=== PATIENT | female | born 1970 | race Caucasian/White ===

== ENCOUNTER 2020-12-12 08:29 | Outpatient (CLI) | payer OTHER, SELFPAY ==
[2020-12-12 08:42] LABS: Basophils Absolute Auto 0.08 K/mm3 (0.00-0.10); Basophils Percent Auto 0.7 % (0.0-1.0); Eosinophils Absolute Auto 0.09 K/mm3 (0.02-0.50); Eosinophils Percent Auto 0.8 % (1.0-6.0); Hematocrit 45.3 % (35.0-49.0); Hemoglobin 15.2 g/dL (12.0-15.0); Immature Granulocyte Absolute 0.06 K/mm3 (0.00-0.00); Immature Granulocyte Percent A 0.5 % (0.0-0.0); Lymphocytes Absolute Auto 3.14 K/mm3 (1.10-4.50); Lymphocytes Percent Auto 26.5 % (18.0-42.0); Mean Corpuscular HGB Conc 33.6 g/dL (32.0-36.0); Mean Corpuscular Hemoglobin 31.5 pg (27.0-31.0); Mean Corpuscular Volume 93.8 fL (78.0-102.0); Mean Platelet Volume 8.9 fl (9.2-11.8); Monocytes Absolute Auto 0.76 K/mm3 (0.10-0.90); Monocytes Percent Auto 6.4 % (2.0-11.0); Neutrophils Absolute Auto 7.7 K/mm3 (1.7-7.2); Neutrophils Percent Auto 65.1 % (50.0-70.0); Platelet Count Result 343 K/mm3 (150-420); Red Blood Count 4.83 M/mm3 (4.20-5.40); Red Cell Distribution Width 13.9 % (11.6-14.4); White Blood Count 11.9 K/mm3 (4.8-10.8)
[2020-12-12 09:37] LABS: Alanine Aminotransferase 57 U/L (14-59); Albumin Level 3.6 g/dL (3.4-5.0); Alkaline Phosphatase 89 U/L (46-116); Anion Gap 11 mmol/L (8-16); Aspartate Amino Transferase 18 U/L (15-37); Bilirubin,Total 0.3 mg/dL (0.00-1.00); Blood Urea Nitrogen 17 mg/dL (7-18); Calcium 8.9 mg/dL (8.5-10.1); Carbon Dioxide 25 mmol/L (21-32); Chloride 105 mmol/L (98-108); Cholesterol 259 mg/dL (0-200); Estimated Glomerular Filt Rate 59; Glucose 114 mg/dL (70-99); HDL Direct 45 mg/dL (40-60); LDL Cholesterol Calculated 169 mg/dL (<130); Osmolality Calculated 294 mOsm/kg (285-295); Potassium 4.7 mmol/L (3.5-5.1); Sodium 141 mmol/L (136-145); Total Protein 6.8 g/dL (6.4-8.2); Triglycerides 223 mg/dL (0-150)
== END 2020-12-12 08:30 | disposition home or self-care (01) ==
PROVIDERS: PCP Nurse Practitioner Family; Visit Provider Nurse Practitioner Family
DX: R73.09 Other abnormal glucose (principal); E78.5 Hyperlipidemia, unspecified; Z12.11 Encounter for screening for malignant neoplasm of colon; Z12.12 Encounter for screening for malignant neoplasm of rectum
CPT/HCPCS: 36415; 80053; 80061; 83036; 85025

== ENCOUNTER 2021-06-30 07:52 | Outpatient (RCR) | payer OTHER, SELFPAY ==
--- NOTE | 2021-06-30 08:57 | PTOPEVAL ---
Thank you for referring Nesha Reid to [facility].? The patient is scheduled to be seen for therapy? ____x/week for ___ weeks. Please review, sign, date and return this plan of care MARGIE. I agree with and certify that the following plan of care is medically necessary. Referring Physician Date Admitting Provider: Attending Provider: Olive Sanabria NP Referring Provider: ANU Outpatient Evaluation Start: 06/30/21 08:01 Freq: Status: Active Protocol: Document 06/30/21 08:00 JON (Rec: 06/30/21 08:54 JON [email or web address]) Therapy Assessment Status Assessment Status Assessment Status Evaluation Evaluation Information Problem Diagnosis cervical radiculopathy Onset Additional Evaluation Detail NDI = 40% functionally declined Subjective Information patient reports she began Query Text:As Reported By Patient/ having numbness in the L thumb Family , index, and middle fingers and up the arm into the shoulder beginning about 2 months ago. she reports she had an MRI of the neck but reports this was a few years ago. she reports she has never been tested for carpal tunnel of the L hand. she reports her MRI 2 years ago revealed a bulging disc in the lower neck. she reports she will have increased numbness/ tingling in the hand and arm when she is simply sitting. she reports she hears a lot of crunching and grinding in the neck, but this does not necessarily increase her pain. she reports she does not work . she reports a typical day at home includes cooking and light house work. Prior Level of Function Comments Additional Prior Level of Function prior to 2 months ago, no Comments issues with the hand. no injury leading to her sudden onset of symptoms. Pain Assessment Timing of Pain Assessment Timing of Pain Assessment Assessment Pain Scale Pain Scale Used Numeric (1 - 10) Self Report Pain Assessment Left Hand(s) Reported Pain Level 0 Pain Description Numbness,Tingling Pain Radiation
--- NOTE | 2021-07-28 09:00 | PTOPEVAL ---
Thank you for referring Nesha Reid to [facility].? The patient is scheduled to be seen for therapy? ____x/week for ___ weeks. Please review, sign, date and return this plan of care MARGIE. I agree with and certify that the following plan of care is medically necessary. Referring Physician Date Admitting Provider: Attending Provider: Olive Sanabria NP Referring Provider: ANU Outpatient Evaluation Start: 06/30/21 08:01 Freq: Status: Active Protocol: Document 07/28/21 07:58 [facility] (Rec: 07/28/21 09:00 [facility] [id number]) Therapy Assessment Status Assessment Status Assessment Status Re-evaluation Evaluation Information Problem Diagnosis cervical radiculopathy Onset Additional Evaluation Detail ndi = 42% functionally declined quick dash = 34% functionally declined Subjective Information patient reports she feels Query Text:As Reported By Patient/ About the same this date. she Family reports she continues to have numbness and tingling in the L thumb, 2nd, and 3rd digits. she reports her numbness/ tingling runs up the arm into the armpit. she reports no pain in the arm, hand, or neck . she reports she is having a NCS tomorrow to evaluate for carpal tunnel. Pain Assessment Timing of Pain Assessment Timing of Pain Assessment Assessment Pain Scale Pain Scale Used Numeric (1 - 10) Self Report Pain Assessment Left Hand(s) Reported Pain Level 0 Pain Description Numbness,Tingling Greatest Pain Intensity 0 Pain Score Pain Score 0: Self Report Interventions Used Interventions Used By Clinicians Activity or ADL's,Education, Exercise Cervical and Lumbar ROM Cervical ROM Cervical Flexion (0-60) 50 Query Text:Active in Degrees Cervical Extension (0-70) 40 Query Text:Active in Degrees Cervical Lateral Flexion Right (0-50) 35 Query Text:Active in Degrees Cervical Lateral Flexion Left (0-50) 40 Query Text:Active in Degrees Cervical Rotation Right (0-90) 50 Query Text:Active in Degrees Cervical Rotation Left (0-90) 55 Query Text:Active in Degrees Upper Extremity Range of Motion General Upper Extremity Range of Motion Reason Not Measured WFL/Left,WFL/Right Upper Extremity Muscle Strength Testing General Upper Extremity Strength Gross Upper Extremity Strength Comments R hand gr
--- NOTE | 2021-08-18 09:57 | PCPTNOTE ---
patient reports she does have carpal tunnel. she reports she is getting a brace. as of this date, she will be dc'd from skilled PT services and all progress towards goals will be taken from her most recent evaluation/note. JON
== END 2021-07-28 16:07 | disposition home or self-care (01) ==
LOC: CHSPT 07:52
PROVIDERS: PCP Nurse Practitioner Family; Visit Provider Nurse Practitioner Family
DX: M54.12 Radiculopathy, cervical region (principal)
CPT/HCPCS: 97110; 97161

== ENCOUNTER 2022-01-20 09:04 | Outpatient (CLI) | payer OTHER, SELFPAY ==
--- NOTE | ~2022-01-20 | MM_ITS ---
EXAMINATION: MM screening [facility] BI w aviva HISTORY: Screening mammogram TECHNIQUE: Craniocaudal and mediolateral oblique 3-D tomosynthesis images were obtained and synthetic 2-D images were generated. CAD analysis was submitted and interpreted. COMPARISON: 01/09/2013 BREAST PARENCHYMAL COMPOSITION: There are scattered areas of fibroglandular density. FINDINGS: There is no suspicious mass, calcification, or architectural distortion to suggest malignan cy in either breast. There has been no suspicious interval change. IMPRESSION: 1. No mammographic evidence of malignancy. 2. Recommend routine screening mammography in one year. BI-RADS Category 1: Negative Reviewed, dictated and finalized at location A.
== END 2022-01-20 09:05 | disposition home or self-care (01) ==
LOC: CHSIMG 09:07
PROVIDERS: PCP Nurse Practitioner Family; Visit Provider Nurse Practitioner Family
DX: Z12.31 Encounter for screening mammogram for malignant neoplasm of breast (principal)
CPT/HCPCS: 77063; 77067

== ENCOUNTER 2023-06-17 07:23 | Outpatient (CLI) | payer OTHER, SELFPAY ==
--- NOTE | ~2023-06-17 | MM_ITS ---
EXAMINATION: MM screening [facility] BI w aviva HISTORY: Screening mammogram TECHNIQUE: Craniocaudal and mediolateral oblique 3-D tomosynthesis images were obtained and synthetic 2-D images were generated. CAD analysis was submitted and interpreted. COMPARISON: 01/20/2022, 01/09/2013 BREAST PARENCHYMAL COMPOSITION: There are scattered areas of fibroglandular density. FINDINGS: No suspicious mass, calcification, or architectural distortion are identified in either annette ast to suggest malignancy. There has been no suspicious interval change. IMPRESSION: 1. No mammographic evidence of malignancy. 2. Recommend routine screening mammography in one year. BI-RADS Category 1: Negative Reviewed, dictated and finalized at location A.
== END 2023-06-17 07:24 | disposition home or self-care (01) ==
LOC: CHSIMG 07:25
PROVIDERS: PCP Nurse Practitioner Family; Visit Provider Nurse Practitioner Family
DX: Z12.31 Encounter for screening mammogram for malignant neoplasm of breast (principal)
CPT/HCPCS: 77063; 77067

== ENCOUNTER 2023-11-25 10:51 | Outpatient (CLI) | payer OTHER, SELFPAY ==
[2023-11-25 11:06] LABS: Hematocrit 47.1 % (35.0-49.0); Hemoglobin 15.5 g/dL (12.0-15.0); Immature Granulocyte Absolute 0.05 K/mm3 (0.00-0.00); Immature Granulocyte Percent A 0.5 % (0.0-0.0); Lymphocytes Absolute Auto 4.31 K/mm3 (1.10-4.50); Lymphocytes Percent Auto 42.1 % (18.0-42.0); Mean Corpuscular HGB Conc 32.9 g/dL (32.0-36.0); Mean Corpuscular Hemoglobin 30.3 pg (27.0-31.0); Mean Corpuscular Volume 92.2 fL (78.0-102.0); Monocytes Absolute Auto 0.57 K/mm3 (0.10-0.90); Monocytes Percent Auto 5.6 % (2.0-11.0); Neutrophils Absolute Auto 5.1 K/mm3 (1.7-7.2); Neutrophils Percent Auto 49.8 % (50.0-70.0); Platelet Count Result 374 K/mm3 (150-420); Red Blood Count 5.11 M/mm3 (4.20-5.40); Red Cell Distribution Width 14.1 % (11.6-14.4); White Blood Count 10.2 K/mm3 (4.8-10.8)
[2023-11-25 11:18] LABS: Hemoglobin A1C 5.9 % (<5.7)
[2023-11-25 11:40] LABS: Alanine Aminotransferase 34 U/L (14-59); Albumin Level 3.6 g/dL (3.4-5.0); Alkaline Phosphatase 94 U/L (46-116); Anion Gap 9 mmol/L (8-16); Aspartate Amino Transferase 13 U/L (15-37); Bilirubin,Total 0.3 mg/dL (0.00-1.00); Blood Urea Nitrogen 15 mg/dL (7-18); Carbon Dioxide 29 mmol/L (21-32); Chloride 105 mmol/L (98-108); Cholesterol 277 mg/dL (0-200); Estimated Glomerular Filt Rate > 60; Glucose 84 mg/dL (70-99); HDL Direct 49 mg/dL (40-60); LDL Cholesterol Calculated 193 mg/dL (<130); Osmolality Calculated 295 mOsm/kg (285-295); Potassium 4.6 mmol/L (3.5-5.1); Sodium 143 mmol/L (136-145); Total Protein 7.1 g/dL (6.4-8.2); Triglycerides 173 mg/dL (0-150)
== END 2023-11-25 10:52 | disposition home or self-care (01) ==
LOC: CHSLAB 10:53
PROVIDERS: PCP Nurse Practitioner Family; Visit Provider Nurse Practitioner Family
DX: Z00.00 Encounter for general adult medical examination without abnormal findings (principal)
CPT/HCPCS: 36415; 80053; 80061; 83036; 85025

== ENCOUNTER 2023-12-20 10:14 | Outpatient (CLI) | payer OTHER, SELFPAY ==
--- NOTE | 2024-01-10 17:10 | WPDSLEEPSTUD ---
Sleep Study Date of Study: 12/20/23 Ordering Provider: Dada Madrid DO Interpreting Physician: Karey Barrientos DO Sleep Study Type: Polysomnogram Height: 1.55 m Weight: 71.668 kg Body Mass Index: 29.8 Neck Circumference (inches): 15 Shaniko: 4 Reason for Sleep Study Snoring, difficulty sleeping Sleep History The patient is a 53-year-old with COPD, depression tremor, bipolar disorder, GERD, hyperlipidemia prediabetes, PTSD, spinal stenosis tobacco use that had a sleep study ordered by her primary care for evaluation of sleep disorders. The patient denies awakening from sleep short of breath. She rarely awakens at night with heartburn, belching or cough. She frequently snores and it it occasionally loud enough that others complain. She rarely has trouble sleeping when she has a cold. She denies waking gasping for air throughout the night. She denies having breathing problems at observed by herself or others. He rarely sweats excessively at night. She denies having heart palpitations or irregular heartbeats during the night. She rarely falls asleep during the day and never while driving. She denies sleep paralysis, cataplexy and hypnagogic / hypnopompic hallucinations. She denies feeling afraid of going to sleep. She denies having nightmares. She denies remembering her dreams. She occasionally has thoughts racing through her mind. She occasionally feels sad or depressed. She occasionally has anxiety. She frequently has muscular tension. She rarely notices parts of her body jerk. She denies kicking during the night. She denies having crawling and aching feelings in her legs but rarely has leg pain during the night she denies having morning jaw pain. She is constantly bothered by pain during the day and frequently awakened by pain during the night. She frequently wakes up feeling stiff in the morning. She frequently wakes with sore or achy muscles. She frequently wakes up with pain in the neck, spine and other joints. She goes to bed at 2:00 a.m. on both weekdays and weekends. It takes her hours to fall asleep. She wakes up 2-3 times throughout the night to use the restroom and it can take an hour fall asleep she wakes up between 5-7 a.m. on weekdays and 7:00 a.m. on the weekends. She typically gets 3 to hours of sleep per night. She will stay in bed 3 to minutes after waking in the morning. She currently lives her boyfriend and his to daughters. She denies consuming any caffeinated beverages within 2 hours of bedtime. She will engage in physical exercise before bedtime. She will read and watch television before falling asleep. She denies taking naps in afternoon or the evening. She consumes 3-4 caffeinated beverages per day. She smokes 1 pack of cigarettes per day. She denies alcohol and recreational drug use. [facility] Past Medical History Medical History Asthma Bilateral shoulder pain Bipolar disorder COPD (chronic obstructive pulmonary disease) Facial droop (06/06/15) GERD without esophagitis Hyperlipidemia Lower extremity weakness (12/16/15) Oneyda-Garza tear (~2017) Nicotine dependence Nicotine dependence with current use Obesity, Class I, BMI 30-34.9 Pre-diabetes PTSD (post-traumatic stress disorder) Right knee pain Screening for malignant neoplasm of colon Spinal stenosis (~2017) Surgical History Surgical History Previous back surgery Family History Family History Mother , CVA Lupus Seizure Parkinson disease Alzheimer's dementia Cerebrovascular accident Grandparent Parkinson disease Sibling , from DM I complications Diabetes mellitus DM Type I Parkinson disease Other Hypertension Social History Social History Smoking pa
[2024-01-10 17:11] VITALS: BMI 29.8
== END 2023-12-21 05:41 | disposition home or self-care (01) ==
LOC: ANHCSM 10:17
PROVIDERS: PCP Nurse Practitioner Family; Visit Provider Family Medicine
DX: G47.33 Obstructive sleep apnea (adult) (pediatric) (principal); G47.9 Sleep disorder, unspecified; I10 Essential (primary) hypertension
CPT/HCPCS: 95810

== ENCOUNTER 2024-02-27 12:16 | Emergency (ER) | payer OTHER, SELFPAY ==
--- NOTE | ~2024-02-27 | XR_ITS ---
EXAMINATION: XR chest 2V DATE: 02/27/2024 12:57 INDICATION: Chronic cough TECHNIQUE: frontal and lateral views of the chest were obtained. COMPARISON: None FINDINGS: The lungs are clear with no focal airspace opacities, pulmonary edema, pleural effusion or pneumothor ax. The cardiomediastinal silhouette is normal. Mild thoracic spondylosis with mild anterior wedging of a couple mid thoracic vertebral bodies. IMPRESSION: 1. No acute cardiopulmonary disease. Reviewed, dictated and finalized at location A.
[2024-02-27 12:26] VITALS: BP 138/83; PULSE 89; RESP 20; TEMP 36.8; O2SAT 98
--- NOTE | 2024-02-27 12:44 | ED.GENADULT ---
HPI - General Adult General Chief complaint: Upper Respiratory Infection Stated complaint: poison shay/cough/left eye Time Seen by Provider: 02/27/24 12:44 Source: patient Mode of arrival: ambulatory Limitations: no limitations History of Present Illness HPI narrative: 53 y/o female presented for 3 concerns. 1. Endorses poison shay rash x3d to face arms hands. has been using shay rest and cold compresses. Denies lip, tongue, or throat swelling, shortness of breath or wheezing. Denies changes to soap, detergent, lotion, or any other exposures. No one else in the house or any contacts with similar symptoms. 2. Endorses cough since July. Pt's pcp is aware, has been treated with steroids and inhalers. Currently says the cough is more productive of white/dolan sputum. Denies sob, wheezing, n/v/d/f/c. 3. Reports new lesion over the left eye x1 month. Denies eye swelling, redness, drainage, or vision changes. Lesion is skin colored and getting bigger per pt. Related Data Allergies Allergy/AdvReac Type Severity Reaction Status Date / Time metronidazole Allergy Unknown unknown Verified 02/27/24 12:27 Sulfa (Sulfonamide Allergy Unknown unkown Verified 02/27/24 12:27 Antibiotics) buspirone AdvReac Intermediate GI UPSET Verified 02/27/24 12:27 fluoxetine AdvReac Intermediate AGITATION Verified 02/27/24 12:27 gabapentin AdvReac Intermediate Sweating Verified 02/27/24 12:27 Review of Systems Review of Systems: CONSTITUTIONAL: Denies body aches, fever, chills, or sweats. EYES: Reports skin lesion over left eye Denies visual changes, redness, or discharge. ENT: Denies rhinorrhea, congestion, sore throat, or otalgia. CARDIOVASCULAR: Denies chest pain, palpitations, or edema. RESPIRATORY: Reports cough, denies sob, wheezing. GASTROINTESTINAL: Denies abdominal pain, nausea, vomiting, or diarrhea. GENITOURINARY: Denies dysuria or hematuria. SKIN: reports rash MUSCULOSKELETAL: Denies back pain, joint pain, or myalgia. NEUROLOGIC: Denies headache, numbness, tingling, or weakness. All systems reviewed & are unremarkable except as noted in HPI and below PMFSH Past Medical History Medical History Asthma Bilateral shoulder pain Bipolar disorder COPD (chronic obstructive pulmonary disease) Facial droop (06/06/15) GERD without esophagitis Hyperlipidemia Lower extremity weakness (12/16/15) Oneyda-Garza tear (~2016) Nicotine dependence Nicotine dependence with current use Obesity, Class I, BMI 30-34.9 Pre-diabetes PTSD (post-traumatic stress disorder) Right knee pain Screening for malignant neoplasm of colon Spinal stenosis (~2016) Surgical History Surgical History Previous back surgery Family History Family History Mother , CVA Lupus Seizure Parkinson disease Alzheimer's dementia Cerebrovascular accident Grandparent Parkinson disease Sibling , from DM I complications Diabetes mellitus DM Type I Parkinson disease Other Hypertension Social History Social History Smoking packs per day: 0.5 Smoking cigarettes per day: 10.0 Years smoked: 41 Smoking pack-years: 20.50 Smoking status: Current every day smoker Tobacco type: cigarettes Alcohol intake: never Substance use type: marijuana Living arrangements: with family Additional occupation/education comments: disability Gender identity (if verbalized by the patient): Female Spiritual care concerns: No Comments At time of signature, I have reviewed and agree with nursing past medical, surgical, social and family history unless otherwise noted. Please see nursing chart for further information. There is no relevant family history pertinent to the presenting complaint Exam Narrative: GENERAL:
[2024-02-27 12:48] VITALS: BP 138/83; PULSE 89; RESP 20; TEMP 36.8; O2SAT 98
== END 2024-02-27 13:24 | disposition home or self-care (01) ==
PROVIDERS: Emergency Provider Nurse Practitioner Family
DX: H02.64 Xanthelasma of left upper eyelid (principal); L25.9 Unspecified contact dermatitis, unspecified cause; R05.3 Chronic cough; J45.909 Unspecified asthma, uncomplicated; F31.9 Bipolar disorder, unspecified; K21.9 Gastro-esophageal reflux disease without esophagitis; E78.5 Hyperlipidemia, unspecified; F17.210 Nicotine dependence, cigarettes, uncomplicated
CPT/HCPCS: 71046; 99213; G0463

== ENCOUNTER 2024-04-02 11:35 | Outpatient (CLI) | payer OTHER, SELFPAY ==
[2024-04-02 12:27] LABS: Hemoglobin A1C 6.4 % (<5.7)
[2024-04-02 12:37] LABS: Alanine Aminotransferase 24 U/L (14-59); Albumin Level 4.2 g/dL (3.4-5.0); Alkaline Phosphatase 85 U/L (46-116); Anion Gap 8 mmol/L (4-12); Aspartate Amino Transferase 19 U/L (15-37); Bilirubin,Total 0.3 mg/dL (0.00-1.00); Blood Urea Nitrogen 14 mg/dL (7-18); Calcium 9.5 mg/dL (8.5-10.1); Carbon Dioxide 29 mmol/L (21-32); Chloride 102 mmol/L (98-108); Cholesterol 335 mg/dL (0-200); Estimated Glomerular Filt Rate > 60; Glucose 113 mg/dL (70-99); HDL Direct 52 mg/dL (40-60); LDL Cholesterol Calculated 245 mg/dL (<130); Osmolality Calculated 289 mOsm/kg (285-295); Potassium 4.5 mmol/L (3.5-5.1); Sodium 139 mmol/L (136-145); Total Protein 7.9 g/dL (6.4-8.2); Triglycerides 188 mg/dL (0-150)
== END 2024-04-02 11:36 | disposition home or self-care (01) ==
LOC: CHSLAB 11:37
PROVIDERS: PCP Nurse Practitioner Family; Visit Provider Nurse Practitioner Family
DX: R73.03 Prediabetes (principal); E78.5 Hyperlipidemia, unspecified
CPT/HCPCS: 36415; 80053; 80061; 83036

== ENCOUNTER 2024-04-12 10:24 | Outpatient (CLI) | payer OTHER, SELFPAY ==
--- NOTE | ~2024-04-12 | CT_ITS ---
EXAMINATION: CT lung screening DATE: 04/12/2024 10:52 INDICATION: F17.200 - Nicotine dependence, unspecified, uncomplicated TECHNIQUE: Computed tomography (CT) of the chest was performed without intravenous contrast. Addition al 3D reconstructions utilizing coronal maximum intensity projection (MIP) were performed. Automated exposure control and iterative reconstruction technique were employed. The dose-length product was 62 .84 mGy-cm. COMPARISON: None FINDINGS: A few scattered small bilateral pulmonary nodules the largest measuring 4 mm at the left apex. No pne umonia, pulmonary edema or pleural effusion. Heart size is normal. Atherosclerotic coronary artery ca lcific location. No pericardial effusion. Thoracic aorta is normal in caliber. No pathologically enla rged thoracic lymphadenopathy. Visualized upper abdomen is unremarkable. Chronic fractures of the lat eral right fifth and sixth ribs, the latter remaining ununited. Moderate thoracic spondylosis with ch ronic appearing mild anterior wedging at T7-T9. IMPRESSION: 1. Lung-RADS category 2: Benign appearance or behavior. Continue annual screening with noncontrast lo w-dose chest CT in 12 months. Reviewed, dictated and finalized at location A. IMPRESSION: 1. Lung-RADS category 2: Benign appearance or behavior. Continue annual screeni ng with noncontrast low-dose chest CT in 12 months.
== END 2024-04-12 10:25 | disposition home or self-care (01) ==
LOC: CHSIMG 10:25
PROVIDERS: PCP Nurse Practitioner Family; Visit Provider Nurse Practitioner Family
DX: Z12.2 Encounter for screening for malignant neoplasm of respiratory organs (principal); Z87.891 Personal history of nicotine dependence
CPT/HCPCS: 71271

== ENCOUNTER 2024-08-16 13:42 | Outpatient (CLI) | payer OTHER, SELFPAY ==
--- NOTE | ~2024-08-16 | MM_ITS ---
EXAMINATION: MM screening [facility] BI w aviva HISTORY: Screening TECHNIQUE: Craniocaudal and mediolateral oblique 3-D tomosynthesis images were obtained and synthetic 2-D images were generated. CAD analysis was submitted and interpreted. COMPARISON: Comparison to multiple prior studies sequentially, with oldest reviewed study dated 01/20. BREAST PARENCHYMAL COMPOSITION: Not dense: There are scattered areas of fibroglandular density. FINDINGS: There is no evidence of suspicious mass, calcification, or architectural distortion to sugg est malignancy in either breast. There has been no suspicious interval change. IMPRESSION: 1. No mammographic evidence of malignancy. 2. Recommend routine screening mammography in one year. BI-RADS Category 1: Negative Reviewed, dictated and finalized at location B.
--- NOTE | ~2024-08-16 | US_ITS ---
EXAM: Focused ultrasound examination of the soft tissues of the left axilla HISTORY: R20.0 - Anesthesia of skin TECHNIQUE: Sonographic evaluation of the soft tissues of the left axilla were performed assessing gra yscale appearance and color Doppler flow. COMPARISON: None. FINDINGS: Sonographic evaluation of the soft tissues of the left axilla demonstrate benign fibrofatty and fibro muscular elements without a cystic or solid lesion of concern. IMPRESSION: No sonographic abnormality is appreciated on focused ultrasound examination. Reviewed, dictated and finalized at location A.
[2024-08-16 14:13] LABS: Hemoglobin A1C 5.8 % (<5.7)
== END 2024-08-16 13:43 | disposition home or self-care (01) ==
LOC: CHSIMG 13:43
PROVIDERS: PCP Nurse Practitioner Family; Visit Provider Nurse Practitioner Family
DX: R20.0 Anesthesia of skin (principal); M62.89 Other specified disorders of muscle; Z12.39 Encounter for other screening for malignant neoplasm of breast; R73.03 Prediabetes
CPT/HCPCS: 36415; 76882; 77063; 77067; 83036

== ENCOUNTER 2024-09-04 10:01 | Outpatient (CLI) | payer OTHER, SELFPAY | END 2024-09-04 10:02 | disposition home or self-care (01) | PROVIDERS: PCP Nurse Practitioner Family; Visit Provider Nurse Practitioner Family | DX: M54.2 Cervicalgia (principal) | CPT/HCPCS: 99199 ==

== ENCOUNTER 2024-09-04 15:27 | Outpatient (NON) | payer OTHER, SELFPAY ==
[2024-09-04 16:19] LABS: Amphetamine Screen Urine Negative (Negative); Barbiturate Screen Urine Negative (Negative); Benzodiazepines Screen Urine Negative (Negative); Cannabinoid Screen Urine Positive (Negative); Cocaine Screen Urine Negative (Negative); Methadone Screen Urine Negative (Negative); Opiate Screen Urine Negative (Negative); Phencyclidine Screen Urine Negative (Negative)
== END 2024-09-04 15:28 | disposition home or self-care (01) ==
LOC: CHSLAB 15:29
PROVIDERS: Visit Provider Nurse Practitioner Family
DX: G89.29 Other chronic pain (principal); M54.50 Low back pain, unspecified
CPT/HCPCS: 80307

== ENCOUNTER 2024-11-06 10:42 | Outpatient (CLI) | payer OTHER, SELFPAY ==
--- NOTE | ~2024-11-06 | XR_ITS ---
XR shoulder LT min 2V Ordering provider: Aundrea Rosas APRN History: . M25.512 - Pain in left shoulder, numbness/tingle down UE . Comparison: None. FINDINGS: BONES: No acute fracture or dislocation. JOINT SPACES: The acromioclavicular joint is normal. The glenohumeral joint is normal. SOFT TISSUES: Normal. IMPRESSION: No acute osseous abnormality left shoulder. Reviewed, dictated and finalized at location A. AD GRINDER TOOL
--- NOTE | ~2024-11-06 | XR_ITS ---
XR_[id number]_CR Ordering provider: Aundrea Rosas APRN History: . M54.2 - Cervicalgia . Comparison: None. FINDINGS: VERTEBRAL BODIES: Normal height and alignment. No visible fracture or subluxation. The dens is intact . DISK SPACES: Narrowing of the disc C5-C6 and C6-C7. Multilevel facet joint disease. Multilevel uncove rtebral joint osteoarthritic changes. PARASPINOUS SOFT TISSUES: No prevertebral soft tissue swelling. IMPRESSION: No acute osseous abnormality cervical spine. Multilevel degenerative disc disease. Reviewed, dictated and finalized at location A. EDICAL PHOTOGRAPHER
--- NOTE | ~2024-11-06 | XR_ITS ---
Thoracic spine: Clinical Indication: Back pain AP and lateral views were performed. No fracture is seen. There is normal alignment of the vertebrae. There is mild edematous change in t he thoracic spine. Paravertebral soft tissues appear normal. Impression: Mild degenerative spondylosis. Reviewed, dictated and finalized at location . TBAND DECORATING MACHINE OPERATOR Impression: Mild degenerative spondylosis.
--- NOTE | ~2024-11-06 | XR_ITS ---
Lumbosacral Spine: AP and lateral views Clinical History: Pain Findings: The normal lordotic curve is maintained. No fracture seen. There is grade 1 retrolisthesis of L2 over L3. There is moderate degenerative disc narrowing L2-L3. The remaining intervertebral dis c spaces are preserved. There is moderate to advanced facet arthropathy at L4-L5 and L5-S1. The sacro iliac joints are normally outlined. Impression: Grade 1 retrolisthesis of L2 over L3. Facet arthropathy at the lower lumbar spine, as above. Reviewed, dictated and finalized at location M. CE MACHINES SALES REPRESENTATIVE Impression: Grade 1 retrolisthesis of L2 over L3. Facet arthropathy at the lower lumbar spine, as above.
[2024-11-06 10:57] LABS: Hematocrit 47.1 % (35.0-49.0); Hemoglobin 15.4 g/dL (12.0-15.0); Mean Corpuscular HGB Conc 32.7 g/dL (32-36); Mean Corpuscular Hemoglobin 30.2 pg (27.0-31.0); Mean Corpuscular Volume 92.4 fL (78.0-102.0); Mean Platelet Volume 8.9 fl (9.2-11.8); Platelet Count Result 334 K/mm3 (150-420); Red Cell Distribution Width 14.1 % (11.6-14.4)
[2024-11-06 11:25] LABS: Hemoglobin A1C 5.6 % (<5.7)
[2024-11-06 11:42] LABS: Ferritin 121 ng/mL (8-252); Magnesium 2.2 mg/dL (1.8-2.4); Thyroid Stimulating Hormone 2.12 uIU/mL (0.36-3.74)
[2024-11-06 12:45] LABS: Alanine Aminotransferase 28 U/L (14-59); Albumin Level 4.1 g/dL (3.4-5.0); Alkaline Phosphatase 91 U/L (46-116); Anion Gap 11 mmol/L (4-12); Aspartate Amino Transferase 12 U/L (15-37); Bilirubin,Total 0.4 mg/dL (0.00-1.00); Blood Urea Nitrogen 18 mg/dL (7-18); Calcium 9.2 mg/dL (8.5-10.1); Carbon Dioxide 27 mmol/L (21-32); Chloride 104 mmol/L (98-108); Cholesterol 234 mg/dL (0-200); Estimated Glomerular Filt Rate 60; Glucose 98 mg/dL (70-99); HDL Direct 63 mg/dL (40-60); LDL Cholesterol Calculated 143 mg/dL (<130); Osmolality Calculated 295 mOsm/kg (285-295); Potassium 4.7 mmol/L (3.5-5.1); Sodium 142 mmol/L (136-145); Total Protein 6.9 g/dL (6.4-8.2); Triglycerides 138 mg/dL (0-150)
== END 2024-11-06 10:43 | disposition home or self-care (01) ==
PROVIDERS: Internal Medicine Cardiovascular Disease; PCP Nurse Practitioner Family; Visit Provider Nurse Practitioner Family
DX: Z00.00 Encounter for general adult medical examination without abnormal findings (principal); E11.9 Type 2 diabetes mellitus without complications; G47.9 Sleep disorder, unspecified; M54.40 Lumbago with sciatica, unspecified side; M54.6 Pain in thoracic spine; G89.29 Other chronic pain; M25.512 Pain in left shoulder; E78.5 Hyperlipidemia, unspecified; M50.30 Other cervical disc degeneration, unspecified cervical region; M43.04 Spondylolysis, thoracic region; M12.88 Other specific arthropathies, not elsewhere classified, other specified site
CPT/HCPCS: 36415; 72040; 72070; 72100; 73030; 80053; 80061; 82728; 83036; 83735; 84443; 85027

== ENCOUNTER 2025-06-03 18:04 | Emergency (ER) | payer OTHER, SELFPAY ==
--- OUTSIDE RECORDS SUMMARY | 2025-06-03 18:06 | XMS_ITS | Clinical Summary ---
Author Organization [facility] [address] Address [address] [place] [address] Phone Care Team Providers Care Fund Raiser Name Role Phone Cindy Ricks FIREWORKS ASSEMBLER Unavailable [phone] Aundrea Rosas NP Primary Care Provider [phone] Allergies Active Allergy Reactions Criticality Noted Date Comments Buspirone Hcl Other (See comments) Low 01/20/2017 Gabapentin Other (See comments),Unknown Low 01/20/2017 Pale/passed out Sulfa (Sulfonamide Antibiotics) Other (See comments),Vomiting Low 06/21/2024 Sulfasalazine Vomiting Low 09/23/2017 Medications albuterol HFA (PROVENTIL HFA,VENTOLIN HFA,PROAIR HFA) 90 mcg/actuation inhaler Active aspirin 81 mg enteric coated tablet 4 Active budesonide-for moteroL (SYMBICORT) 80-4.5 mcg/actuation inhaler 2 Active tiotropium (Spiriva with HandiHaler) 18 mcg per inhalation capsule Active QUEtiapine (SEROquel) 100 mg tablet 4 Active primidone (MYSOLINE) 50 mg tabletIndicati ons:Essential Tremor Take 1 tablet (50 mg total) by mouth 2 (two) times a day Take 1/2 tab twice daily for 1 week, then 1/2 tab in AM and 1 tablet at night for 1 week, then 1 tablet twice daily 60 tablet 3 4 Active pregabalin (LYRICA) 150 mg capsule Take 1 capsule (150 mg total) by mouth 2 (two) times a day Active topiramate (TOPAMAX) 25 mg tablet TAKE 1 TABLET(25 MG) BY MOUTH EVERY NIGHT 30 tablet 5 Active topiramate (TOPAMAX) 25 mg tablet TAKE 1 TABLET(25 MG) BY MOUTH EVERY NIGHT 30 tablet 5 05/07/20 25 Discontinued Active Problems Problem Noted Date Diagnosed Date Essential tremor 06/21/2024 Encounters Date Type Department Care Team Description 05/25/2025 11:30 AM CDT - 05/25/2025 11:59 PM CDT Hospital Encounter [facility] [address] [place] [address] Personal history of nicotine dependence Discharge Disposition: Discharge to home or self care 04/25/2025 1:00 PM CDT Office Visit [facility] [address] [place] [address] [place] Marie NP Essential tremor (Primary Dx) from Last 3 Months Social History Tobacco Use Types Packs/Day Years Used Date Smoking Tobacco: Unknown Tobacco Cessation:Counseling Given: Not Answered Comments Unknown Sex and Gender Information Value Date Recorded Sex Assigned at Not on file Legal Sex Female 10:19 AM CDT Gender Identity Not on file Sexual Orientation Not on file Obstetrics History Last Filed Vital Signs Vital Sign Reading Time Taken Comments Blood Pressure 144/85 04/25/2025 1:01 PM CDT Pulse 79 04/25/2025 1:01 PM CDT Temperature - - Respiratory Rate - - Oxygen Saturation 96% 04/25/2025 1:01 PM CDT Inhaled Oxygen Concentration - - Weight 64.4 kg (142 lb) 05/25/2025 11:55 AM CDT Height 152.4 cm (5') 05/25/2025 11:55 AM CDT Body Mass Index 27.73 05/25/2025 11:55 AM CDT Plan of Treatment Health Maintenance Due Date Last Done Comments Breast Cancer Screening-Mammogram 1969 Cervical Cancer Screening 1969 Colon Cancer Screening-Colonoscopy 1969 Depression Screening 1969 Hepatitis C Screening 1969 DTaP/Tdap/Td Vaccine (1 - Tdap) 1980 Hepatitis B Screening 1987 Regular Well Visit/Exam 18-64 1987 Zoster Vaccine (1 of 2) 2019 Influenza Vaccine (#1) 2025 Pneumococcal vaccine <65 Aged Out No longer eligible based on patient's age to complete this topic Insurance [facility] Care Teams Fund Raiser Relationship Specialty Start Date End Date Aundrea Rosas NP [address] [place] [address] PCP - General Family Medicine 05/22/25 Cindy Ricks NP [address] [place] [address] Nurse Practitioner Nurse Practitioner 10/25/23
--- OUTSIDE RECORDS SUMMARY | 2025-06-03 18:06 | XMS_ITS | Clinical Summary ---
Author Organization [facility] Address [address] [place] [address] Phone Care Team Providers Care Radio Message Router Name Role Phone Olive Sanabria APRN Primary Care Provider [phone] Allergies Active Allergy Reactions Criticality Noted Date Comments Gabapentin Other (see Comments) 09/23/2017 Pale/passed out Sulfa Antibiotics Vomiting 09/23/2017 Medications chlordiazePOXIDE -amitriptyline (LIMBITROL) 10-25 MG Tablet Take 1 Tab by mouth 4 times daily. Active Mirtazapine 45 MG TABLET DISPERSIBLE Take 45 mg by mouth nightly. Active OLANZapine (ZYPREXA) 20 MG Tablet Take 20 mg by mouth nightly. Active diclofenac (CATAFLAM) 50 MG Tablet Take 50 mg by mouth 2 times daily. Active cyclobenzaprine (FLEXERIL) 10 MG Tablet Take 10 mg by mouth daily. Active ondansetron (ZOFRAN-ODT) 4 MG TABLET DISPERSIBLE Take 1 Tab by mouth every 6 hours as needed for Nausea. 5 Tab 09/23/2017 Active Social History Tobacco Use Types Packs/Day Years Used Date Smoking Tobacco: Every Day Cigarettes Smokeless Tobacco: Never Alcohol Use Standard Drinks/Week Comments No 0 (1 standard drink = 0.6 oz pur e alcohol) Comments No Sex and Gender Information Value Date Recorded Sex Assigned at Not on file Legal Sex Female 9:37 PM CDT Gender Identity Not on file Sexual Orientation Not on file Last Filed Vital Signs Vital Sign Reading Time Taken Comments Blood Pressure 129/79 09/23/2017 3:32 AM STUDIO HAND Pulse 95 09/23/2017 3:32 AM STUDIO HAND Temperature 36.8 C (98.2 F) 09/23/2017 1:19 AM STUDIO HAND Respiratory Rate 18 09/23/2017 1:19 AM STUDIO HAND Oxygen Saturation 100% 09/23/2017 3:32 AM STUDIO HAND Inhaled Oxygen Concentration - - Weight 72.6 kg (160 lb) 09/23/2017 1:15 AM STUDIO HAND Height 154.9 cm (5' 1) 09/23/2017 1:15 AM STUDIO HAND Body Mass Index 30.23 09/23/2017 1:15 AM STUDIO HAND Plan of Treatment Health Maintenance Due Date Last Done Comments Hepatitis C Virus (HCV) Screening 1969 TdaP Immunization 1969 Hepatitis B Immunization (1 of 3 - 19+ 3-dose series) 1988 Pap Smear 1990 Cervical Cancer Screening (CCS) 1999 HPV/Cotest 1999 Cologuard 2014 Colonoscopy 2014 Colorectal Cancer Screening 2014 Immunochemical Fecal Occult Blood 2014 Pneumococcal Immunization (5 0+ years) (1 of 1 - PCV) 2019 Zoster Immunization (1 of 2) 2019 SARS-COV-2 Immunization (1 - 2023- season) 2024 Influenza Immunization (#1) 2025 Respiratory Syncytial Virus (RSV) Immunization (Adult) (1 - 1-dose 75+ series) 2044 Human Papillomavirus (HPV) Immunization Aged Out No longer eligible b ased on patient's age to complete this topic Meningococcal Immunization (ACWY) Aged Out No longer eligible based on patient's age to complete this topic Rotavirus Immunization Aged Out No lo nger eligible based on patient's age to complete this topic Insurance MEDICAID [employer] Care Teams Radio Message Router Relationship Specialty Start Date End Date Olive Sanabria APRN [address] [place] [address] PCP - General Family Medicine 07/29/22
--- OUTSIDE RECORDS SUMMARY | 2025-06-03 18:06 | XMS_ITS | Continuity of Care Document ---
Author Organization [facility] Address [id number] [place] [address] [address] [place] [address] Phone Care Team Providers Care Plate Finisher Name Role Phone Radhames Bryant DO Unavailable Unavailable Advance Directives Directive Yes / No Effective Date File Name No Information Encounters Encounter Description Practice Location Reason(s) For Visit Diagnoses Date Provider Providers Copied on Encounter [facility], [address], [place], [place], [id number], [place] tel:[phone] [facility] No Information Manny Arango. [address] [place], [address], [place]. tel:[phone] Referring Provider: Dalton Bingham MD [place], [address] [place] [address], [address]. tel:[phone] Family History Family Member Type Diagnosis Age At Onset No Information Payers Payer name Insurance type Covered republican ID Authoriza tion(s) Medicaid [facility] [id number] Social History Type Description Quantity Date Captured Comments Sex Female Smoking Status No Information Chief Complaint And Reason For Visit No Information Reason For Referral Reason For Referral No Information History Of Present Illness Encounter Date Complaint History Of Prese nt Illness No Information Functional Status Date Functional Assessmen t No Information Instructions Date Instruction Additional Infor mation No Information Assessments Type Assessment Date No Information Patient Care Teams Name Effective Dates (start - stop) Status Members No Information
--- OUTSIDE RECORDS SUMMARY | 2025-06-03 18:06 | XMS_ITS | Patient Health Record ---
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 Name Role Phone Abdoul Reynoso Primary Care Provider [phone] Allergies Allergen (clinical drug ingredient) Drug/Non Drug Allergy documented on EMR Reaction Allergy Type Onset Date Status metronidazole Flagyl Unknown Drug Allergy Act santiago fluoxetine PROzac Unknown Drug Allergy Active gabapentin Gabapentin Unknown Drug Allergy Activ e Substance with sulfonamide structure and antibacterial mechanism of action (substance) Sulfa Antibiotics Unknown Drug Allergy Active Reason For Referral No Information Medications Medication SIG (Take, Route, Frequency, Duration) Notes Start Date End Date Status Spiriva HandiHaler 18 MCG 1 capsule by i nhaling the contents of the capsule using the HandiHaler device Inhalation Once a day Active Lovastatin 40 MG 1 tablet with the ev ening meal Orally Once a day; Duration: 30 day(s) Active Pregabalin 150 MG 1 capsule Orally Onc e a day Active Social History Tobacco Use: Social History Observation Description Date Details (start date - stop date) Current Smoker NA - NA Sex Assigned At : Social History Observation Description Sex Assigned At Female Dont use, Tobacco Use/Smoking Question Answer Notes Are you a current every day smoker Problems Problem Type SNOMED Code ICD Code Onset Dates Problem Status W/U Status Risk Notes Problem Moderate recurrent major depression (45664773) Major depressive disorder, recurrent, moderate (F33.1) Active confirmed Problem Tobacco dependence (65861608) Tobacco dependence (F17.200) Active confirmed Problem Posttraumatic stress disorder (71324574) PTSD (post-traumati c stress disorder) (F43.10) Active confirmed Problem Bipolar 1 disorder (124019282) Bipolar 1 disorder (F31.9) Active confirmed Problem Severe depressed bipolar I disorder without psychotic features (34642223) Bipolar I disorder, most recent episode depressed, severe without psychotic features (F31.4) Active confirmed Plan Of Treatment No Information Insurance Providers Payer Name Payer Address Payer Phone Subscriber Number Group Number Insured Name Patient Relationship to Insured Coverage Start Date Coverage End Date [facility] Ordering [facility] Attn Claims Department [address] [place] [address] [phone] [id number] Nesha Reid Self - patient is the insured 1 [employer] Attn Claims Department [address] [place] [address] [phone] [id number] Nesha Reid Self - patient is the insured 1 Medical (General) History Medical History History ICD Code COPD Degenerative disc disease spinal stenosis arthritis Surgical History Surgery Date(Month/Year) s/p right fractured wrist 2001
--- OUTSIDE RECORDS SUMMARY | 2025-06-03 18:08 | XMS_ITS | Continuity of Care Document ---
Author Organization [facility] Address [address] [place] [address] [address] [place] [address] Phone Care Team Providers Care Rug Washer Name Role Phone Radhames Bryant DO Unavailable Unavailable Advance Directives Directive Yes / No Effective Date File Name No Information Encounters Encounter Description Practice Location Reason(s) For Visit Diagnoses Date Provider Providers Copied on Encounter [facility], [address], [place], [place], [id number], [place] tel:[phone] [facility] No Information Manny Arango. [address] [place], [address], [place]. tel:[phone] Referring Provider: Dalton Bingham MD [place], [address] [place] [address], [address]. tel:[phone] Family History Family Member Type Diagnosis Age At Onset No Information Payers Payer name Insurance type Covered democrat ID Authoriza tion(s) Medicaid [facility] [id number] Social History Type Description Quantity Date Captured [...]
--- NOTE | 2025-06-03 18:10 | ED_ITS ---
HPI - Extremity Problem General Chief complaint: Extremity Problem,Nontraumatic Stated complaint: Left Hip Pain Time Seen by Provider: 06/03/25 18:15 Source: patient and RN notes reviewed Mode of arrival: ambulatory Limitations: no limitations History of Present Illness HPI Narrative: 54-year-old female presents with concern for left hip pain that radiates down to the left thigh. She denies injury or trauma. She reports pain is made worse by walking, rolling over in bed chief. She denies any relieving factors. She denies bruising, rash. She reports history of low back problems. She denies loss of bowel or bladder function, perianal anesthesia or weakness in any extremity. MD Complaint: extremity pain Related Data Home Medications ?Medication ?Instructions ?Recorded ?Confirmed ?Last Taken ?Type topiramate 25 mg tablet 25 mg PO DAILY 03/07/25 05/20/25 Unknown History quetiapine 200 mg tablet mg 06/03/25 Unknown History tiotropium bromide 18 mcg capsule inhalation 06/03/25 Unknown History with inhalation device Allergies Allergy/AdvReac Type Severity Reaction Status Date / Time metronidazole Allergy Unknown unknown Verified 05/20/25 17:14 Sulfa (Sulfonamide Allergy Unknown unkown Verified 05/20/25 17:14 Antibiotics) buspirone AdvReac Intermediate GI UPSET Verified 05/20/25 17:14 fluoxetine AdvReac Intermediate AGITATION Verified 05/20/25 17:14 gabapentin AdvReac Intermediate Sweating Verified 05/20/25 17:14 Review of Systems Review of Systems: CONSTITUTIONAL: Denies malaise, chills, sweats, or fever. CARDIOVASCULAR: Denies chest pain, palpitations, or edema. RESPIRATORY: Denies cough or dyspnea. GASTROINTESTINAL: Denies abdominal pain, nausea, vomiting, diarrhea, loss of bowel function GENITOURINARY: Denies dysuria, hematuria, frequency, loss of bladder function. SKIN: Denies rash or itching. MUSCULOSKELETAL: Reports left low back pain, left hip pain NEUROLOGIC: Denies numbness, weakness, or headache. All systems reviewed & are unremarkable except as noted in HPI and below PMFSH Past Medical History Medical History Personal history of nicotine dependence Bilateral shoulder pain Screening for malignant neoplasm of colon Lower extremity weakness (12/16/15) Facial droop (06/06/15) Right knee pain Obesity, Class I, BMI 30-34.9 Nicotine dependence with current use COPD (chronic obstructive pulmonary disease) Nicotine dependence Oneyda-Garza tear (~2017) Spinal stenosis (~2017) Hyperlipidemia PTSD (post-traumatic stress disorder) GERD without esophagitis Asthma Surgical History Surgical History Previous back surgery Family History Family History Mother , CVA Lupus Seizure Parkinson disease Alzheimer's dementia Cerebrovascular accident Grandparent Parkinson disease Sibling , from DM I complications Diabetes mellitus DM Type I Parkinson disease Other Hypertension Social History Social History Smoking packs per day: 0.5 Smoking cigarettes per day: 10.0 Years smoked: 41 Smoking pack-years: 20.50 Smoking status: Current every day smoker Tobacco type: cigarettes Alcohol intake: never Substance use type: marijuana Living arrangements: with family Additional occupation/education comments: disability Gender identity (if verbalized by the patient): Female Spiritual care concerns: No Comments At time of signature, agree with nursing past medical, surgical, social and family history. There is no relevant family history pertinent to the presenting complaint Exam Narrative: GENERAL: Well-appearing, well-nourished, and in no acute distress. HEAD: Normocephalic, atraumatic. EYES: PERRLA and EOMI. NECK: Supple. No lymphadenopathy. CHEST: Clear to auscultation. No respiratory distress. HEART: Regular rate and rhythm. Distal pulses palpable and equal, cap refill <3 seconds ABDOMEN: Soft, nontender, nondistended, normal active bowel sounds, no palpable or pulsatile masses. No CVA tenderness MUSCULOSKELETAL: Normal range of motion and strength in all extremities; 5/5 strength with hip flexion and extension, dorsiflexion and extension, knee flexion and extension, plantar flexion and extension. Normal sensation in dermatomal distributions with sensitivity to light touch and pain. No midline back tenderness to palpation. No paraspinal tenderness. Transfers from sitting to standing. SKIN: Warm, dry, no rash. No ecchymosis, erythema, open wounds to back. NEURO: No focal deficits. Alert and oriented x3. Reflexes intact. Normal gait. PSYCH: Normal mood and affect Course Course Emergency Course: Patient is aware of diagnosis, understands and agrees to treatment plan. Anticipatory guidance given. Patient agrees to follow-up as directed and is aware of reasons to seek care at the emergency department. Portions of this record may have been created with voice recognition software Level of Care: Express Care Visit Vital Signs Vital signs: Reviewed. MDM - Extremity (Nontraumatic) MDM Narrative Medical decision making narrative: I evaluated this patient in the express care. History is obtained from patient who is an independent historian and physical exam was performed.? Available medical records were reviewed. ? Exam findings and relevant testing show no acute concerns or changes; patient is non-toxic appearing and is in no distress. ? Differential diagnosis and treatment plan were discussed with the patient. Patient agrees with discussion and after shared medical decision making agrees with plan of care. All questions were answered to the patient's satisfaction. Patient is appropriate for outpatient treatment and follow-up. Critical Care Time Critical Care Time Critical Care Time: No Discharge Plan Discharge Clinical Impression: Acute back pain with sciatica Patient Disposition: Home Condition: Stable Instructions: Sciatica (ED) Additional Instructions: Please follow up with your Primary Care Doctor within 48-72 hours - call for an appointment. Walking and other gentle exercising several times a week has been shown to improve back pain; bed rest is not recommended. Take prednisone as directed, take muscle relaxers every 8 hours as needed for muscle spasm- do not drive or make any important decisions while on this medication for it can make you drowsy. You may apply ice to the area as needed. If you experience any worsening pain, swelling, numbness, weakness please go to ER. Contact your doctor or go to the emergency department if you develop problems with bladder or bowel function, weakness or loss of feeling in one or both of your legs, or any other serious concerns. Patient Language: Hong Konger Prescriptions: New cyclobenzaprine 10 mg tablet 10 mg PO TID PRN (Reason: muscle spasm) Qty: 20 0RF prednisone 50 mg tablet 50 mg PO DAILY 5 Days Qty: 5 0RF No Action quetiapine 200 mg tablet tiotropium bromide 18 mcg capsule, w/inhalation device INHALATION topiramate 25 mg tablet 25 mg PO DAILY diclofenac sodium 100 mg tablet extended release 24 hr 100 mg PO BIDWMEAL 90 Days Qty: 180 1RF cetirizine [Zyrtec] 10 mg tablet 10 mg PO DAILY Qty: 90 1RF fluticasone propionate 50 mcg/actuation spray,suspension See Rx Instructions .ROUTE .COMPLEX Qty: 16 2RF Dose Instruction: INHALE ONE SPRAY IN EACH NOSTRIL DAILY Rx Instructions: INHALE ONE SPRAY IN EACH NOSTRIL DAILY budesonide 32 mcg/actuation spray,non-aerosol 1 spray intranasal DAILY PRN (Reason: allergy symptoms) Qty: 8.43 2RF Rx Instructions: administer into each nostril. do not use Flonase if using this. budesonide-formoterol [Symbicort] 160-4.5 mcg/actuation HFA aerosol inhaler 2 puff inhalation Q12H Qty: 10.2 4RF cyclobenzaprine 10 mg tablet 10 mg PO .Bedtime PRN (Reason: muscle spasm) Qty: 90 0RF Caplyta 42 mg capsule 42 mg PO DAILY Qty: 90 1RF pregabalin 150 mg capsule 150 mg PO BID 30 Days Qty: 60 2RF ezetimibe 10 mg tablet 10 mg PO DAILY Qty: 30 5RF albuterol sulfate 90 mcg/actuation HFA aerosol inhaler See Rx Instructions .ROUTE .COMPLEX Qty: 8.5 0RF Dose Instruction: INHALE 2 PUFFS BY MOUTH EVERY 4 TO 6 HOURS NEEDED FOR SHORTNESS OF BREATH OR WHEEZING Rx Instructions: INHALE 2 PUFFS BY MOUTH EVERY 4 TO 6 HOURS NEEDED FOR SHORTNESS OF BREATH OR WHEEZING quetiapine 100 mg tablet See Rx Instructions .ROUTE .COMPLEX Qty: 90 0RF Dose Instruction: TAKE 1 TABLET BY MOUTH EVERY DAY AT BEDTIME Rx Instructions: TAKE 1 TABLET BY MOUTH EVERY DAY AT BEDTIME Follow-up/Referrals: Aundrea Rosas APRN [Primary Care Provider] - Time of Disposition: 18:24
== END 2025-06-03 18:28 | disposition home or self-care (01) ==
PROVIDERS: Emergency Provider Nurse Practitioner; PCP Nurse Practitioner Family
DX: M54.42 Lumbago with sciatica, left side (principal); J44.9 Chronic obstructive pulmonary disease, unspecified; E78.5 Hyperlipidemia, unspecified; K21.9 Gastro-esophageal reflux disease without esophagitis; J45.909 Unspecified asthma, uncomplicated; M48.00 Spinal stenosis, site unspecified; E66.9 Obesity, unspecified; F17.210 Nicotine dependence, cigarettes, uncomplicated; F12.90 Cannabis use, unspecified, uncomplicated
CPT/HCPCS: 99213; G0463

== ENCOUNTER 2025-10-21 10:08 | Outpatient (CLI) | payer OTHER, SELFPAY ==
--- OUTSIDE RECORDS SUMMARY | 2025-10-21 10:35 | XMS_ITS | Data Portability ---
Author Organization [facility] Address [address] [place] [address] Care Team Providers Care Software Integration Developer Name Role Phone Unavailable Primary Care Provider AMADA Zuleta Primary Care Provider [phone] Assessment Encounter Date Assessment Date Assessment LastModified by Organization Details LastModified Time 02/08/2022 02/08/2022 Annual gynecological exam performed. Patient will come back in a year unless there are new symptoms. Not available 02/08/2022 09:37:34 03/24/2023 03/24/2023 Annual gynecological exam performed. Patient will come back in a year unless there are new symptoms. Not available 03/24/2023 10:39:13 03/29/2024 03/29/2024 Annual gynecological exam performed. Patient will come back in a year unless there are new symptoms. [email or web address] Not available 03/28/2024 16:11:51 Plan of Treatment Reminders Order Date Submit Date Provider Last Modified By Organization Details Last Modified Time Details Appointments None recorded. Lab CBC w/ auto diff 2022 023 [facility] (Lab), [address], [place], [address], 3 04:06:25 CMP, serum or plasma 2022 023 [facility] (Lab), [address], [place], [address], 3 04:06:26 lipid panel, blood 2022 023 [facility] (Lab), [address], [place], [address], 3 04:06:25 TSH, serum or plasma 2022 023 [facility] (Lab), [address], [place], [address], 3 04:06:26 vitamin D, 25-hydroxy , total, serum 2022 023 [facility] (Lab), [address], [place], [address], 3 04:06:27 Referral None recorded. Procedures None recorded. Surgeries None recorded. Imaging None recorded. Medication Orders estradiol 0.01% (0.1 mg/gram) vaginal cream [address], [place], [place], [id number], 4 09:34:31 Patient TargetsNo targets recorded. Patient InstructionsNo instructions recorded. Reason for Referral None Reported. Results Created Date Observation Date Name Description Value Unit Range Abnormal Flag Note LastModifiedBy Organization Detail LastModifiedTime 02/09/20 22 02/08/2022 IMAGE GUIDE D PAP AND HPV REGAR DLESS image guided Pap, HPV regardless of Pap result SEE RESULT S BELOW abnormal CASE REPOR T: Cytol ogy Gynec ologi tri Repor t Case: [id number] Autho rosanna g Provi brandie: Alka Reyes MD Colle cted: 02/08 1218 Order ing Locat ion: [place] Patho logy Recei monica: 02/09 0227 First Scree n: Strut z, Willi am, CT Patho logis t: Joie Walter MD Speci men: Scree ramu Pap - Image d, Cervi x STATE MENT OF ADEQU ACY: Satis facto ry for evalu ation Trans forma tion zone compo nent absen t FINAL DIAGN OSIS: Epith elial Cell Abnor malit y, Squam ous Cell: Atypi tri Squam ous Cells of Undet ermin ed Chano mary (ASC- [place]). Elect talta maier by Joie Walter MD on 2021 at 2:50 PM ----- ----- ----- ----- ----- ----- ----- ----- ----- ----- ----- ----- ----- ----- ----- ----- ----- ---- HPV RESUL TS: HPV mRNA E6/E7 : Posit santiago - HPV mRNA Detec soraida HPV GENOT YPE 16 (JANICE) : Detec soraida HPV GENOT YPE 18/45 (JANICE) : Not Detec soraida NOTE: This high risk HPV mRNA assay detec ts fourt een high- risk HPV types (16, 18, 31, 33, 35, 39, 45, 51, 52, 56, 58, 59, 66, 68) witho ut diffe renti ation . This assay can diffe renti ate HPV 16 from HPV 18/45 , but does not diffe renti ate betwe en HPV 18 and HPV 45. A negat santiago HPV 16, 18/45 genot ype assay resul t does not exclu de the possi bilit y of cytol ogic abnor malit ies or of futur e or under lying WENDY 1, WENDY 3 or cance r. COMME NT: Note: This speci men was revie wed by a Cytot echno logis t and/o r Patho logis t (as indic ated in this repor t) after evalu ation using the Thinp rep Imagi ng Syste m. CLINI TRI INFOR MATIO N: Menst rual Statu s: LMP (if appli cable ): Clini tri Histo ry/Pr eviou s Pap: Type of Neopl christie (if appli cable ): Ghadai ryan t Clini tri Findi ngs: Other Histo ry: Hormo deisy (if appli cable ): SUGGE STED FOLLO W-UP: Follo w up as warra nted, based on curre nt guide lines and indiv idual patie nt consi derat ions. Not Available [facility] (Lab) [address], [place], [address], 02/15/2022 15:53:02 03/11/20 22 03/11/2022 SURGI TRI PATHO LOGY surgical pathology SEE RESULT S BELOW CASE REPOR T: Surgi tri Patho logy Repor t Case: [id number] Autho rosanna marley Provi brandie: Alka Reyes MD Colle cted: 03/11 1243 Order ing Locat ion: [place] Patho logy Recei monica: 03/12 0333 Patho logis t: Lynnette Ziegler MD Speci mens: A) - Cervi x, CXBX B) - Endoc ervix , ECC with brush FINAL DIAGN OSIS: A. Cervi x, biops y: - Low-g rade squam ous intra epith elial lesio n (WENDY 1). B. Endoc ervix , curet tage: -Ecto cervi tri squam ous epith elium witho ut diagn ostic abnor malit y. -No endoc ervic al gland ular mucos a prese nt for exami natio n. Elect talat maier by Lynnette Ziegler MD on 2021 at 12:56 PM ----- ----- ----- ----- ----- ----- ----- ----- ----- ----- ----- ----- ----- ----- ----- ----- ----- ---- CLINI TRI INFOR MATJORGE LUIS N: R87.6 10 MICRO SCOPI C DESCR IPTIO N: A micro scopi c exami natio n was perfo rmed. GROSS DESCR IPTIO N: A. Cervi x. The speci men is label ed with the patie nt's name, karolog raphi cs and cerv ical BX. Recei monica in forma elmer is a 0.5 cm piece of white -vazquez tissu e. The entir e speci men is submi tted in one casse tte. Gross ed by Aman roman B. Endoc ervix . The speci men is label ed with the patie nt's name, demog raphi cs and ECC . Recei monica in forma elmer is a 0.5 x 0.5 x 0.[address] of mucus and minut e white -vazquez tissu e. The entir e speci men is submi tted in one casse tte. Gross ed by Aman roman Not Available [facility] (Lab) [address], [place], [address], 03/12/2022 13:59:37 03/11/20 22 03/11/2022 pregn tiffany test, urine HCG negati ve Not Available [place] [address], [place], [address], 03/11/2022 11:16:28 03/24/20 23 03/24/2023 CBC W/DIF F WBC 10.0 10'3/ uL 3.6-10 .2 Not Available [facility] (Lab) [address], [place], [address], 03/25/2023 04:06:24 03/24/20 23 03/24/2023 CBC W/DIF F RBC 5.20 10'6/ uL (based on docume nted legal sex) 4.10-5 .30 Not Available [facility] (Lab) [address], [place], [address], 03/25/2023 04:06:24 03/24/20 23 03/24/2023 CBC W/DIF F HGB 16.0 g/dL (based on docume nted legal sex) 11.9-1 5.8 high Not Available [facility] (Lab) [address], [place], [address], 03/25/2023 04:06:24 03/24/20 23 03/24/2023 CBC W/DIF F HCT 51.2 % (based on docume nted legal sex) 37.4-4 8.3 high Not Available [facility] (Lab) [address], [place], [address], 03/25/2023 04:06:24 03/24/20 23 03/24/2023 CBC W/DIF F MCV 98.5 fL 82.0-9 9.0 Not Available [facility] (Lab) [address], [place], [address], 03/25/2023 04:06:24 03/24/20 23 03/24/2023 CBC W/DIF F MCH 30.8 pg 27.0-3 3.0 Not Available [facility] (Lab) [address], [place], [address], 03/25/2023 04:06:24 03/24/20 23 03/24/2023 CBC W/DIF F MCHC 31.3 g/dL 32.0-3 6.0 low Not Available [facility] (Lab) [address], [place], [address], 03/25/2023 04:06:24 03/24/20 23 03/24/2023 CBC W/DIF F RDW 15.2 % 11.0-1 5.0 high Not Available [facility] (Lab) [address], [place], [address], 03/25/2023 04:06:24 03/24/20 23 03/24/2023 CBC W/DIF F plt 402 10'3/ uL 150-45 0 Not Available [facility] (Lab) [address], [place], [address], 03/25/2023 04:06:24 03/24/20 23 03/24/2023 CBC W/DIF F MPV 10.1 fL 9.8-12 .7 Not Available [facility] (Lab) [address], [place], [address], 03/25/2023 04:06:24 03/24/20 23 03/24/2023 CBC W/DIF F NRBC's 0.0 % 0 Not Available [facility] (Lab) [address], [place], [address], 03/25/2023 04:06:24 03/24/20 23 03/24/2023 CBC W/DIF F absolute NRBCs 0.0 10'3/ uL 0 Not Available [facility] (Lab) [address], [place], [address], 03/25/2023 04:06:24 03/24/20 23 03/24/2023 CBC W/DIF F neutrophils 53.9 % 37.0-7 2.0 Not Available [facility] (Lab) [address], [place], [address], 03/25/2023 04:06:24 03/24/20 23 03/24/2023 CBC W/DIF F lymphocytes 38.4 % 16.0-4 8.0 Not Available [facility] (Lab) [address], [place], [address], 03/25/2023 04:06:24 03/24/20 23 03/24/2023 CBC W/DIF F monocytes 5.6 % 4.0-14 .0 Not Available [facility] (Lab) [address], [place], [address], 03/25/2023 04:06:24 03/24/20 23 03/24/2023 CBC W/DIF F eosinophils 0.8 % 0.0-9. 0 Not Available [facility] (Lab) [address], [place], [address], 03/25/2023 04:06:24 03/24/20 23 03/24/2023 CBC W/DIF F basophils 1.0 % 0.0-2. 0 Not Available [facility] (Lab) [address], [place], [address], 03/25/2023 04:06:24 03/24/20 23 03/24/2023 CBC W/DIF F immature granulocytes 0.3 % no define d refere nce range Not Available [facility] (Lab) [address], [place], [address], 03/25/2023 04:06:24 03/24/20 23 03/24/2023 CBC W/DIF F absolute neutrophils 5.4 10'3/ uL 1.1-6. 0 Not Available [facility] (Lab) [address], [place], [address], 03/25/2023 04:06:24 03/24/20 23 03/24/2023 CBC W/DIF F absolute lymphocytes 3.9 10'3/ uL 0.7-3. 4 high Not Available [facility] (Lab) [address], [place], [address], 03/25/2023 04:06:24 03/24/20 23 03/24/2023 CBC W/DIF F absolute monocytes 0.6 10'3/ uL 0.3-1. 0 Not Available [facility] (Lab) [address] [place], [address], 03/25/2023 04:06:24 03/24/20 23 03/24/2023 CBC W/DIF F absolute eosinophils 0.1 10'3/ uL 0.0-0. 6 Not Available [facility] (Lab) [address] [place], [address], 03/25/2023 04:06:24 03/24/20 23 03/24/2023 CBC W/DIF F absolute basophils 0.1 10'3/ uL 0.0-0. 1 Not Available [facility] (Lab) [address] [place], [address], 03/25/2023 04:06:24 03/24/20 23 03/24/2023 CBC W/DIF F absolute immature granulocytes 0.0 10'3/ uL 0.00-0 .10 023 2:40 AM: P indic ates parti al resul ts on a panel have been relea sed. Addit ional resul ts will follo w. 023 2:40 AM: This resul t has been final verif ied. No addit ional or ziegler ed resul ts are expec soraida. Not Available [facility] (Lab) [address], [place], [address], 03/25/2023 04:06:24 03/24/20 23 03/24/2023 LIPID PANEL ,AMA (LDL- CALC) total cholesterol 223 mg/dL 0-199 high Not Available [facility] (Lab) [address] [place], [address], 03/25/2023 04:06:25 03/24/20 23 03/24/2023 LIPID PANEL ,AMA (LDL- CALC) triglyceride s 179 mg/dL 0.00-1 50.00 high NCEP Refer ence Value s for Trigl yceri christine: Tessy l: <150 mg/dL Borde rline High: 150 - 199 mg/dL High: 200 - 499 mg/dL Very High: >/= 500 mg/dL Not Available [facility] (Lab) [address] [place], [address], 03/25/2023 04:06:25 03/24/2003/24/2023 LIPID PANEL ,AMA (LDL- CALC) HDL cholesterol 42 mg/dL >40 Not Available [facility] (Lab) [address] [place], [address], 03/25/2023 04:06:25 03/24/20 23 03/24/2023 LIPID PANEL ,AMA (LDL- CALC) LDL cholesterol 150 mg/dL 0-99 high Cutof f value s recom neyda d by the Natio nal Mackenzie stero l Educa tion Progr am: RICHARD ABLE: Mackenzie stero l <200 mg/dL LDL <100 mg/dL BORDE RLINE : Mackenzie stero l 200-2 39 mg/dL LDL 101-1 59 mg/dL HIGHE R RISK: Mackenzie stero l >240 mg/dL LDL >160 mg/dL , HDL <40 mg/dL Not Available [facility] (Lab) [address] [place], [address], 03/25/2023 04:06:25 03/24/2003/24/2023 LIPID PANEL ,AMA (LDL- CALC) non-HDL cholesterol 181 mg/dL no refere nce range A reaso nable goal for non-H DL mackenzie stero l is one that is 30 mg/dL highe r than the LDL mackenzie stero l goal. Not Available [facility] (Lab) [address], [place], [address], 03/25/2023 04:06:25 03/24/2003/24/2023 LIPID PANEL ,AMA (LDL- CALC) chol/HDL ratio 5.3 . 0.0-5. 0 high On February 15, 2023, [facility] labor atori val ziegler ed the equat ion for calcu latin g estim ated low-d ensit y lipop rotei n-cho leste rol (LDL- C) from the Isaac betancurald equat ion to the Kiki auguste/Suni pena equat ion. This new equat ion is only valid for lipid panel s with trigl yceri christine < 400 mg/dL . Studi es have demon strat ed that this new equat ion will impro ve the accur acy of LDL-C , espec ially in scena harmon when LDL-C yared ntrat ions are relat ively low (< 100 mg/dL ), trigl yceri christine are eleva soraida, or patie nt is non-f astin g. Refer ences : - Walker Camara, Kirk Duran , Heri lucero, Jerry Guerra, Luis Madrid nthal , and Teofilo Akins . 2013. Comp ariso n of a Novel Metho d vs the Fried padmini Equat ion for Estim ating Low-D ensit y Lipop rotei n Mackenzie stero l Level s from the Stand evelyn Lipid Profapple le. IVAN: The Journ al of the Ameri can Medic al Assoc iatio n 310 (19): 2060- . - Cherry patino V, Vivian J, Anthony patino A, Cindi M, Nayeli linn R, Matheus patino E, Jenny smith RS, Tashi SR, Kiki auguste SS. Fast ing Versu s Nonfa sting and Low-D ensit y Lipop rotei n Mackenzie stero l Accur acy. Circu latio n. 2017Oct 25;137 (1):1 0-19. Not Available [facility] (Lab) [address], [place], [address], 03/25/2023 04:06:25 03/24/20 23 03/24/2023 CMP(C OMPRE HENSI VE METAB OLIC PANEL ) sodium 141 mmol/ L 133-14 6 Not Available [facility] (Lab) [address], [place], [address], 03/25/2023 04:06:26 03/24/20 23 03/24/2023 CMP(C OMPRE HENSI VE METAB OLIC PANEL ) potassium 4.3 mmol/ L 3.5-5. 1 Not Available [facility] (Lab) [address] [place], [address], 03/25/2023 04:06:26 03/24/20 23 03/24/2023 CMP(C OMPRE HENSI VE METAB OLIC PANEL ) chloride 106 mmol/ L 98-107 Not Available [facility] (Lab) [address] [place], [address], 03/25/2023 04:06:26 03/24/20 23 03/24/2023 CMP(C OMPRE HENSI VE METAB OLIC PANEL ) carbon dioxide 28 mmol/ L 21-31 Not Available [facility] (Lab) [address], [place], [address], 03/25/2023 04:06:26 03/24/20 23 03/24/2023 CMP(C OMPRE HENSI VE METAB OLIC PANEL ) anion gap 7 mmol/ L 4-13 Not Available [facility] (Lab) [address], [place], [address], 03/25/2023 04:06:26 03/24/20 23 03/24/2023 CMP(C OMPRE HENSI VE METAB OLIC PANEL ) blood urea nitrogen 12 mg/dL 7-25 Not Available [facility] (Lab) [address], [place], [address], 03/25/2023 04:06:26 03/24/20 23 03/24/2023 CMP(C OMPRE HENSI VE METAB OLIC PANEL ) creatinine 0.85 mg/dL 0.60-1 .30 Not Available [facility] (Lab) [address], [place], [address], 03/25/2023 04:06:26 03/24/20 23 03/24/2023 CMP(C OMPRE HENSI VE METAB OLIC PANEL ) egfrcr (CKD-epi 2020) 82 mL/mi n/1.7 3_m2 >=60 Not Available [facility] (Lab) [address], [place], [address], 03/25/2023 04:06:26 03/24/20 23 03/24/2023 CMP(C OMPRE HENSI VE METAB OLIC PANEL ) calcium 9.4 mg/dL 8.3-10 .5 Not Available [facility] (Lab) [address], [place], [address], 03/25/2023 04:06:26 03/24/20 23 03/24/2023 CMP(C OMPRE HENSI VE METAB OLIC PANEL ) glucose 116 mg/dL 70-100 high Not Available [facility] (Lab) [address], [place], [address], 03/25/2023 04:06:26 03/24/20 23 03/24/2023 CMP(C OMPRE HENSI VE METAB OLIC PANEL ) protein, total 6.6 g/dL 6.4-8. 3 Not Available [facility] (Lab) [address], [place], [address], 03/25/2023 04:06:26 03/24/20 23 03/24/2023 CMP(C OMPRE HENSI VE METAB OLIC PANEL ) albumin 4.3 g/dL 3.5-5. 0 Not Available [facility] (Lab) [address], [place], [address], 03/25/2023 04:06:26 03/24/20 23 03/24/2023 CMP(C OMPRE HENSI VE METAB OLIC PANEL ) ALT 27 units /L 9-43 Not Available [facility] (Lab) [address], [place], [address], 03/25/2023 04:06:26 03/24/20 23 03/24/2023 CMP(C OMPRE HENSI VE METAB OLIC PANEL ) alkaline phosphatase 84 units /L 34-104 Not Available [facility] (Lab) [address], [place], [address], 03/25/2023 04:06:26 03/24/20 23 03/24/2023 CMP(C OMPRE HENSI VE METAB OLIC PANEL ) AST 15 units /L 13-39 Not Available [facility] (Lab) [address], [place], [address], 03/25/2023 04:06:26 03/24/20 23 03/24/2023 CMP(C OMPRE HENSI VE METAB OLIC PANEL ) bilirubin, total 0.4 mg/dL 0.2-1. 2 Not Available [facility] (Lab) [address], [place], [address], 03/25/2023 04:06:26 03/24/20 23 03/24/2023 TSH, REFLE X FREE T4 TSH 1.97 uIU/m L 0.30-5 .33 Not Available [facility] (Lab) [address], [place], [address], 03/25/2023 04:06:26 03/24/20 23 03/24/2023 VITAM IN D, 25-OH (TOTA L D2/D3 ) vitamin D, 25-hydroxy, total 17.1 NG/mL 30.0-1 00.0 low Sugge stive of Defic iency : <20 ng/mL Sugge stive of Insuf ficie ncy: 20-29 ng/mL Sugge stive of Suffi cienc y: 30-10 0 ng/mL Sugge stive of Toxic ity: >150 ng/mL Not Available [facility] (Lab) [address], [place], [address], 03/25/2023 04:06:27 03/24/20 23 03/24/2023 IMAGE GUIDE D PAP AND HPV REGAR DLESS image guided Pap, HPV regardless of Pap result SEE RESULT S BELOW CASE REPOR T: Cytol ogy Gynec ologi tri Repor t Case: [id number] Autho betzyn g Provi brandie: Alka Reyes MD Colle cted: 03/24 1208 Order ing Locat ion: [place] Patho logy Recei monica: 03/25 0548 First Scree n: Jessica Carranza , CT Rescr een: Zahra r, Nehal , CT Speci men: Scree ramu Pap - Image d, Cervi x STATE MENT OF ADEQU ACY: Satis facto ry for evalu ation Trans forma tion zone compo nent absen t The absen ce of an endoc ervic al compo nent was confi rmed by an addit ional scree ner. FINAL DIAGN OSIS: Negat santiago for Intra epith elial Lesio n or Fay chowdary (NIL) . Shift in marek sugge stive of bacte rial vagin osis. Elect tamannaamadeo emmanuel mari d by Nehal Roblero CT on 023 at 8:54 AM ----- ----- ----- ----- ----- ----- ----- ----- ----- ----- ----- ----- ----- ----- ----- ----- ----- ---- HPV RESUL TS: HPV mRNA E6/E7 : No HPV mRNA Detec soraida NOTE: This high risk HPV mRNA assay detec ts fourt een high- risk HPV types (16, 18, 31, 33, 35, 39, 45, 51, 52, 56, 58, 59, 66, 68) witho ut diffe renti ation . COMME NT: This speci men was revie wed by a Cytot echno logis t and/o r Patho logis t (as indic ated in this repor t) after evalu ation using the Thinp rep Imagi ng Syste m. CLINI TRI INFOR MATIO N: Menst rual Statu s: LMP (if appli cable ): Clini tri Histo ry/Pr eviou s Pap: Type of Neopl christie (if appli cable ): Signi fican t Clini tri Findi ngs: Other Histo ry: Hormo deisy (if appli cable ): PAP EDUCA LORNA L NOTE: The Pap Test is a scree ramu test with an inher ent false negat santiago rate. Liqui d-bas ed sampl ing may decre ase, but will not elimi raghavendra, false negat santiago resul ts. A negat santiago resul t does not precl ude the prese nce and/o r devel opmen t of disea se, since the prese nce of abnor mal cells in the sampl e depen ds on the locat ion of the lesio n and sampl ing techn ique. Filiberto nued regul ar scree ramu is the best metho d of cance r preve ntion . If repor soraida cytol ogic findi ng do not corre late with physi tri and/o r histo rical findi ngs, furth er inves tigat ion is recom neyda d, as clini robert castillo nted. Not Available [facility] (Lab) [address], [place], [address], 03/29/2023 09:57:48 03/29/20 24 03/29/2024 IMAGE GUIDE D PAP AND HPV REGAR DLESS image guided Pap, HPV regardless of Pap result SEE RESULT S BELOW CASE REPOR T: Cytol ogy Gynec ologi tri Repor t Case: [id number] Autho rosanna marley Provi brandie: Laura Boyle, FLACO Colle cted: 03/29 1323 Order ing Locat ion: [place] Patho logy Recei monica: 03/30 0908 First Scree n: Nehal Roblero , CT Rescr een: Loan Conklin ret, CT Speci men: Diagn ostic Pap - Image d, Cervi x STATE MENT OF ADEQU ACY: Satis facto ry for evalu ation Trans forma tion zone compo nent absen t The absen ce of an endoc ervic al compo nent was confi rmed by an addit ional scree ner. ----- ----- ----- ----- ----- ----- ----- ----- ----- ----- ----- ----- ----- ----- ----- ----- ----- ---- FINAL DIAGN OSIS: Negat santiago for Intra epith elial Lesio n or Fay chowdary (NIL) . Shift in marek sugge stive of bacte rial vagin osis. Elect talat guerra d by Loan Conklin ret, CT on 2023 at 2:17 PM ----- ----- ----- ----- ----- ----- ----- ----- ----- ----- ----- ----- ----- ----- ----- ----- ----- ---- HPV RESUL TS: HPV mRNA E6/E7 : No HPV mRNA Detec soraida NOTE: This high risk HPV mRNA assay detec ts fourt een high- risk HPV types (16, 18, 31, 33, 35, 39, 45, 51, 52, 56, 58, 59, 66, 68) witho ut diffe renti ation . COMME NT: This speci men was revie wed by a Cytot echno logis t and/o r Patho logis t (as indic ated in this repor t) after evalu ation using the Thinp rep Imagi ng Syste m. CLINI TRI INFOR MATIO N: Menst rual Statu s: LMP (if appli cable ): Clini tri Histo ry/Pr eviou s Pap: High Risk Type of Neopl christie (if appli cable ): Signi fican t Clini tri Findi ngs: Other Histo ry: Hormo deisy (if appli cable ): PAP EDUCA LORNA L NOTE: The Pap Test is a scree ramu test with an inher ent false negat santiago rate. Liqui d-bas ed sampl ing may decre ase, but will not elimi raghavendra, false negat santiago resul ts. A negat santiago resul t does not precl ude the prese nce and/o r devel opmen t of disea se, since the prese nce of abnor mal cells in the sampl e depen ds on the locat ion of the lesio n and sampl ing techn ique. Filiberto nued regul ar scree ramu is the best metho d of cance r preve ntion . If repor soraida cytol ogic findi ng do not corre late with physi tri and/o r histo rical findi ngs, furth er inves tigat ion is recom neyda d, as clini robert castillo nted. Not Available [facility] (Lab) [address], [place], [address], 04/02/2024 15:21:03 Result Notes None recorded. Problems Name Problem SNOMED Code Status Onset Date Resolution Date Notes Provider Name and Address Organization Details Recorded Time SNOMED CT Concept Completed 201612/04/2020 Encntr for general adult medical exam w/o abnormal findings ;Recorde d Elsewher e: No Locat ion: [facility] S ource: EHR Strategic Sourcing Manager apryl: N Practi ce ID: [id number] Reji lable Time: 02:30:00 PM Giovanny Reyes MD [address], [place], [address], [facility] 1 09:51:01 Atypical squamous cells of undeterm ined signific ance on vaginal Papanico laou smear [id number] Completed 201612/04/2020 Atyp squam cell of undet signfc cyto smr vagn (ASC-US) ;Practic e ID: [id number] Giovanny Reyes MD [address], [place], [address], [facility] 1 09:51:17 Atypical squamous cells of undeterm ined signific ance on cervical Papanico laou smear [id number] Active 2016 Atyp squam cell of undet signfc cyto smr crvx (ASC-US) ;Practic e ID: 0001 Not Available [facility] 0 17:06:12 Low risk human papillom avirus deoxyrib onucleic acid detected in specimen from cervix [id number] Completed 201612/04/2020 Cervical low risk HPV DNA test positive ;Recorde d Elsewher e: No Locat ion: [facility] S ource: EHR Strategic Sourcing Manager apryl: N Practi ce ID: 0001 Reji lable Time: 10:00:00 AM Giovanny Reyes MD [address], [place], [address], [facility] 09:51:30 Neoplasm of uterine cervix Completed 201712/04/2020 Moderate cervical dysplasi a;Practi ce ID: 0001 Giovanny Reyes MD [address], [place], [address], [facility] 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 09:50:58 Screenin g for malignan t neoplasm of rectum Completed 201712/04/2020 Encounte r for screenin g for malignan t neoplasm of rectum;P ractice ID: 0001 Giovanny Reyes MD [address], [place], [address], [facility] 09:52:06 Human papillom avirus deoxyrib onucleic acid detected , high risk on cervical specimen [id number] Completed 201712/04/2020 Cervical high risk HPV DNA test positive ;Recorde d Elsewher e: No Locat ion: [facility] S ource: EHR Strategic Sourcing Manager apryl: N Ankitati ce ID: 0001 Reji lable Time: 10:30:00 AM Giovanny Reyes MD [address], [place], [address], [facility] 09:51:36 Amenorrh ea [id number] Completed 201712/04/2020 Amenorrh ea;Recor ded Elsewher e: No Locat ion: [facility] S ource: EHR Strategic Sourcing Manager apryl: N Ankitati ce ID: 0001 Reji lable Time: 10:30:00 AM Giovanny Reyes MD [address], [place], [address], [facility] 09:51:13 Body mass index 30+ - obesity 790011797 Completed 201702/26/2021 Body mass index (BMI) 32.0-32. 9, adult;Re corded Elsewher e: No [facility] S ource: EHR Strategic Sourcing Manager apryl: N Practi ce ID: 0001 Reji lable Time: 10:30:00 AM Zabrina Tejada rosa, [facility] 1 09:31:15 Low grade squamous intraepi thelial lesion on cervical Papanico laou smear 6143101693 9105 Active 2017 Low grade intrepit h lesion cyto smr crvx (LGSIL); Practice ID: 0001 Not Available [facility] 0 17:06:13 Pregnanc y test negative [id number] Completed 201712/04/2020 Encounte r for pregnanc y test, result negative ;Practic e ID: 0001 Giovanny Reyes MD [address], [place], [address], [facility] 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 1 09:52:03 Postoper ative care Completed 201812/04/2020 Encounte r for surgical aftcr followin g surgery on the sys;Prac miguelangel ID: 0001 Giovanny Reyes MD [address], [place], [address], [facility] 09:51:53 Clinical finding Completed 201912/04/2020 Dysplasi a of cervix uteri, unspecif ied;Prac miguelangel ID: 0001 Giovanny Reyes MD [address], [place], [address], [facility] 09:51:24 Problem Notes None recorded. Procedures Surgical History Date Name Laterality Status Provider Name and Address Organization Details Recorded Time 04/16/20 22 Colposcopy completed Giovanny Reyes MD [address], [place], [address], [facility] 04/17/2022 12:03:45 03/11/20 22 Colposcopy completed Giovanny Reyes MD [address], [place], [address], [facility] 03/11/2022 20:32:46 03/11/20 22 Colposcopy completed Zabrina [facility] 03/24/2023 09:30:27 01/23/20 22 Date of Last Mammogram completed Yanelis Perez [facility] 03/28/2024 16:12:03 02/27/20 21 Colposcopy completed Giovanny Reyes MD [address], [place], [address], [facility] 02/26/2021 17:18:57 02/27/20 21 Colposcopy completed [facility] 02/04/2022 18:19:05 03/31/20 18 Colposcopy completed [facility] 02/08/2022 10:50:12 02/18/20 17 Colposcopy completed Zabrina [facility] 02/08/2022 10:50:12 cone biopsy completed Zabrina Tejada [facility] 12/03/2020 13:55:02 Imaging Results None recorded. Procedure Notes None recorded. Medical Equipment None Reported. Allergies Allergen ID Allergen Name Allergen Category Reaction Reaction Severity Criticality Documentation Date Start Date Code Code System Note Provider Name and Address Organization Details Recorded Time 1532 amitripty line medicatio n Not available Not available Not available 05/23/2020 704 [facility] 09:38:18 1533 buspirone medicatio n Not available Not available Not available 05/23/2020 1827 RxNorm Zabrina Tejada [facility] 0 11:57:37 1534 gabapenti n medicatio n Not available Not available Not available 05/23/2020 42325 RxNorm Zabrina Tejada [facility] 0 11:08:08 1535 metronida zole medicatio n Not available Not available Not available 05/23/2020 6922 RxNorm Zabrina Tejada [facility] 0 11:57:30 1536 Substance with sulfonami de structure and antibacte rial mechanism of action (substanc e) medicatio n Not available Not available Not available 05/23/2020 56259 8003 [address] [facility] 0 11:57:11 1537 Prozac medicatio n Not available Not available Not available 05/23/2020 46270 RxNorm Zabrina Tejada [facility] 0 11:57:21 07664 cyclobenz aprine medicatio n Not available Not available Not available 12/03/2020 07461 RxNorm [address] Tejada [facility] 1 14:24:04 73926 meloxicam medicatio n Not available Not available Not available 12/03/2020 00336 RxNorm Zabrina Tejada [facility], [facility] 14:24:07 45288 mirtazapi ne medicatio n Not available Not available Not available 12/03/2020 13425 RxNorm Zabrina lee, [facility] 14:23:50 11976 MetroGel medicatio n Not available Not available Not available 12/16/202083940 9 RxNorm Kermit Lindsey [facility], [facility] 16:53:15 Medications Name Sig Start Date Stop Date Status Note LastModified by Organization Details LastModified Time cyclobenz aprine 10 mg tablet 05/23 completed Not Available Not Available Not Available buspirone 5 mg tablet 01/02 completed Not Available Not Available Not Available metformin 500 mg tablet 03/29 completed Not Available Not Available Not Available oxcarbaze pine 150 mg tablet 03/24 completed Not Available Not Available Not Available cetirizin e 10 mg tablet TAKE 1 TABLET BY MOUTH DAILY NEEDED FOR CONGESTI ON active Not Available Not Available No t Available azithromy wendy 250 mg tablet 03/29 completed Not Available Not Available Not Available amitripty line 75 mg tablet take 1 tablet by oral route every day at bedtime 03/24 completed Not Available Not Available Not Available prednison e 20 mg tablet 03/29 completed Not Available Not Available Not Available lovastati n 40 mg tablet 03/29 completed Not Available Not Available Not Available topiramat e 25 mg tablet 03/24 completed Not Available Not Available Not Available oxcarbaze pine 300 mg tablet 03/24 completed Not Available Not Available Not Available acetamino phen 500 mg tablet 03/24 completed Not Available Not Available Not Available guaifenes in 200 mg tablet active Not Available Not Available Not Available cyclobenz aprine (bulk) 100 % powder 01/02 completed Prescrib ed Elsewher e: Yes Loca tion: [facility] M odify By: earl monaco DateTime : 02/24/20 18 10:30:00 AM Not Available Not Available Not Available risperido ne 2 mg tablet 03/24 completed Not Available Not Available Not Available meloxicam 7.5 mg tablet take 2 tablet by oral route every day 01/02 completed Prescrib ed Elsewher e: Yes Loca tion: [facility] odify By: giovana Linn ncounter DateTime : 01/21/20 17 02:30:00 PM Not Available Not Available Not Available alprazola m 0.5 mg tablet 01/02 completed Not Available Not Available Not Available chlordiaz epoxide 5 mg capsule 01/02 completed Not Available Not Available Not Available Metrogel Vaginal 0.75 % (37.5 mg/5 gram) Insert 1 applicat orful every day by vaginal route. 12/16 completed Not Available Not Available Not Available amitripty line 25 mg tablet 02/08 completed Not Available Not Available Not Available amitripty line-chlo rdiazepox w[place] 25 mg-10 mg tablet 05/23 completed Not Available Not Available Not Available amitripty line 10 mg tablet take 1 tablet by oral route 3 times every day 01/02 completed Prescrib ed Elsewher e: Yes Loca tion: [facility] odify By: earl monaco DateTime : 02/24/20 18 10:30:00 AM Not Available Not Available Not Available Flagyl 500 mg tablet take 1 tablet by oral route 2 times every day 08/29 completed Prescrib ed Elsewher e: No [facility] By: amligia devriesunter DateTime : 05/02/20 18 02:15:00 PM Not Available Not Available Not Available mirtazapi ne 30 mg tablet 02/08 completed Not Available Not Available Not Available ranitidin e 150 mg tablet 01/02 completed Not Available Not Available Not Available mirtazapi ne 45 mg tablet 03/24 completed Not Available Not Available Not Available chlordiaz epoxide 10 mg capsule 05/23 completed Not Available Not Available Not Available diclofena c sodium 75 mg tablet,de layed release active Not Available Not Available Not Available clindamyc in 2 % vaginal cream Insert 1 applicat orful every day by vaginal route at bedtime for 7 days. 01/02 completed Not Available Not Available Not Available olanzapin e 15 mg tablet take 1 tablet by oral route every day 05/09 completed Prescrib ed Elsewher e: Yes Loca tion: [facility] odify By: jeff calderon DateTime : 01/21/20 17 02:30:00 PM Not Available Not Available Not Available ranitidin e 150 mg capsule take 1 capsule by oral route 2 times every day 01/02 completed Prescrib ed Elsewher e: Yes [facility] odify By: earl monaco DateTime : 02/24/20 18 10:30:00 AM Not Available Not Available Not Available lovastati n 20 mg tablet 01/02 completed Not Available Not Available Not Available estradiol 0.01% (0.1 mg/gram) vaginal cream 1 g before bed per vagina for 30 days and then twice a week thereaft er 03/29 completed Not Available Not Available Not Available methylpre dnisolone 4 mg tablets in a dose pack FOLLOW PACKAGE DIRECTIO NS 03/29 completed Not Available Not Available Not Available albuterol sulfate HFA 90 mcg/actua tion aerosol inhaler active Not Available Not Available Not Available Vitamin D2 1,250 mcg (50,000 unit) capsule 01/02 completed Not Available Not Available Not Available fluticaso ne propionat e 50 mcg/actua tion nasal spray,adina pension active Not Available Not Available Not Available risperido ne 1 mg tablet 03/24 completed Not Available Not Available Not Available amitripty line 100 mg tablet 03/24 completed Not Available Not Available Not Available loratadin e 10 mg tablet active Not Available Not Available Not Available tiotropiu m bromide 18 mcg capsule with inhalatio n device active Not Available Not Available Not Available mirtazapi ne 7.5 mg tablet take 2 tablet by oral route every day at bedtime 01/02 completed Prescrib ed Elsewher e: Yes Loca tion: [facility] odify By: giovana devriesunter DateTime : 01/21/20 02:30:00 PM Not Available Not Available Not Available pregabali n 75 mg capsule 03/29 completed Not Available Not Available Not Available pregabali n 150 mg capsule active Not Available Not Available Not Available Lyrica 02/08 completed Not Available Not Available Not Available Symbicort 80 mcg-4.5 mcg/actua tion HFA aerosol inhaler active Not Available Not Available Not Available Zipsor 25 mg capsule take 1 capsule by oral route 4 times every day 01/02 completed Prescrib ed Elsewher e: Yes [facility] By: earl monaco DateTime : 02/24/20 10:30:00 AM Not Available Not Available Not Available Vitals Date Recorded Body height Body mass index (BMI) Body weight Systolic And Diastolic Provider Name and Address Organization Details Last Updated DateTime 02/08/2022 154.94 cm 36.3 kg/m2 80596.74 g 144/86 mm[Hg] [facility] 02/08/2022 09:37:54 Date Recorded Body height Body mass index (BMI) Body weight Systolic And Diastolic Provider Name and Address Organization Details Last Updated DateTime 03/11/2022 154.94 cm 35.9 kg/m2 97344.55 g 109/74 mm[Hg] [facility] 03/11/2022 09:51:30 Date Recorded Body height Body mass index (BMI) Body weight Systolic And Diastolic Provider Name and Address Organization Details Last Updated DateTime 03/24/2023 154.94 cm 32.9 kg/m2 61172.07 g 143/87 mm[Hg] [facility] 03/24/2023 10:39:30 Date Recorded Body height Body mass index (BMI) Body weight Systolic And Diastolic Provider Name and Address Organization Details Last Updated DateTime 03/29/2024 154.94 cm 29.3 kg/m2 41963.82 g 132/83 mm[Hg] Yanelis Perez [facility] 03/29/2024 09:33:12 Date Recorded Body height Body mass index (BMI) Body weight Systolic And Diastolic Provider Name and Address Organization Details Last Updated DateTime 04/16/2022 154.94 cm 35.7 kg/m2 51176.96 g 133/84 mm[Hg] Zabrina Tejada [facility] 04/16/2022 09:51:10 Social History Question Answer Notes LastModified by Organizat ion Details LastModified Time Tobacco Smoking Status Current Every Day Smoker Josette Zhang rosa [facility] 04/16/2022 09:13:50 Do You Have An Advance Directive? No Information n ot available 02/26/2021 How Many Years Have You Consumed Alcohol? 30 Information not available 03/11/2022 Are You Blind Or Do You Have Difficulty Seeing? No Information n ot available 02/26/2021 What Is Your Level Of Caffeine Consumption? Moderate Information not available 03/11/2022 How Much Tobacco Do You Chew? None Information not available 02/26/2021 In The 14 Days Before Symptom Onset, Have You Had Close Contact With A Laboratory-confirm ed COVID-19 While That Case Was Ill? No Information n ot available 02/26/2021 In The 14 Days Before Symptom Onset, Have You Had Close Contact With A Person Who Is Under Investigation For COVID-19 While That Person Was Ill? No Information not available 02/26/2021 Have You Been To An Area Known To Be High Risk For COVID-19? No Information not available 02/26/2021 Are You Deaf Or Do You Have Serious Difficulty Hearing? No Information not available 02/26/2021 What Type Of Diet Are You Following? REGULAR Information n ot available 02/26/2021 What Is The Highest Grade Or Level Of School You Have Completed Or The Highest Degree You Have Received? [id number] Information not available 02/26/2021 Are There Any Guns Present In Your Home? No Information not available 02/26/2021 Do You Use Protection During Sex? No Information not available 02/26/2021 Do You Use Your Seat Belt Or Car Seat Routinely? Yes Information not available 02/26/2021 Do You Have Smoke And Carbon Monoxide Detectors In Your Home? Yes Information not available 02/26/2021 At What Age Did You Start Smoking Tobacco? 8 Information not available 02/26/2021 How Much Tobacco Do You Smoke? 1 PPD Information not available 02/26/2021 Do You Use Sunscreen Routinely? No Information not available 02/26/2021 How Many Years Have You Smoked Tobacco? 43 Information not available 03/11/2022 Have You Used IV Drugs? No Information not available 02/26/2021 Sex: Unknown Functional Status Question Answer Note LastModified by Organizat ion Details LastModified Time Do you use any illicit or recreational drugs? Yes Information not available 03/11/2022 What is your level of alcohol consumption? None Information not available 03/11/2022 Are you able to walk independently without assistance or assistive devices? YESWOREST Information not available 02/26/2021 What is your occupation? None Information not available 02/26/2021 What is your exercise level? Occasional Information not available 02/26/2021 Mental Status Question Answer Note LastModified by Organization D etails LastModified Time Do you feel stressed (tense, restless, nervous, or anxious, or unable to sleep at night)? [id number] Information not available 02/26/2021 Family History Relationship Description Onset Age of this Age Resolved Age Notes LastModified by Organization Details LastModified Time Maternal Grandmother Hypertensive disorder Not available 2021 09:37:59 Maternal Grandmother Congenital heart disease Not available 2021 09:13:48 Maternal Grandmother Disorder of thyroid gland Not available 2021 09:37:59 Maternal Grandmother Hypertensive disorder [email or web address] Not available 2021 09:13:48 Maternal Grandmother Disorder of thyroid gland [email or web address] Not available 2021 09:13:48 Mother Mental disorder Not available 2021 09:37:59 Mother Seizure disorder [email or web address] Not available 2021 09:13:48 Mother Cerebrovascu lar accident Not available 09:37:59 Mother Mental disorder Not available 2021 09:13:48 Mother Cerebrovascu lar accident [email or web address] Not available 09:13:48 Father Mental disorder Not available 2021 09:37:59 Father Mental disorder [email or web address] Not available 2021 09:13:48 Medical History Condition Response Anxiety Disorder Y History of abnormal pap Y Asthma Y Lung Disease Y Psychiatric Illness Y Gynecological History Statement/Question Response Abnormal Pap Yes Date of Last Mammogram 01/22/2022 Date of LMP 12/22/2013 On BCP's at Conception? N N Was last menstrual period normal Y STIs/STDs N HPV Vaccine N Colposcopy Duration of Flow (days) 4 Current Control Method Menopause Age at First Child 18 Date of Last Colonoscopy Frequency of Cycle (Q days) 28 Sexually Active? Y Date of DEXA bone scan Age of first menstrual cycle 13 Date of Last Pap Smear Sexual Problems? N LMP Approximate N Obstetrics History GPAL:G 3 P 0 0 0 3 Type Value Living 3 Total 3 Past Encounters Encounter ID Performer Location Encounter Start Date Encounter Closed Date Diagnosis/Indication Diagnosis SNOMED-CT Code Diagnosis ICD10 Code Diagnosis IMO Codes Diagnosis Note [id number] Giovanny Reyes MD [facility] [address] [address] 05/23/2020 11:18:07 05/23/2020 12:36:43 History of dysplasia of cervix 737093836 Z87.410 This patient is a 49-year-ol d female who presents for repeat Pap smear. She had any recently procedure. She will follow up in 6 months. The pelvic exam was normal. Pap smear was performed. [id number] Giovanny Reyes MD [facility] [address] [address] 12/04/2020 09:07:51 12/04/2020 10:19:03 Gynecologic examination 15042915 Z01.419 This patient is here for her annual exam. A thorough history was taken. A physical exam was performed. Age appropriat e routine health screening was ordered, performed, and discussed. Recommende d testing was ordered. She was asked to follow up in one year. She will be informed of any test results. Mammogram - [ Order ] Colonoscop y - [ declined] Bone Density - [ not applicable ] Cholestero l - [ declined blood work] Pap - today Additional precaution macho measures were taken to minimize potential exposure to the Covid-19 virus during this patient s visit, including available hand mortgage funder upon arrive, emily e check and being asked a series of screening questions. All staff wore face coverings during this encounter, as well as provided additional cleaning and sanitizing of all surfaces, including countertop s, pens, chairs, door handles, light switches, etc, prior to and following the patient s visit. Female uri chatoy stress incontinence 78063802 N39.3 patient has stress urinary incontinen ce. She leaks urine only when she coughs, laughs, sneezes. She leaks urine every day. She has to change her clothes periodical ly. We discussed treatment. We agreed to move for with a tension-fr ee vaginal tape. [id number] Giovanny Reyes MD [facility] [address] [address] 02/08/2022 09:05:14 02/08/2022 10:13:16 Gynecologic examination 72720998 Z01.419 This patient is here for her annual exam. A thorough history was taken. A physical exam was performed. Age appropriat e routine health screening was ordered, performed, and discussed. Recommende d testing was ordered. She was asked to follow up in one year. She will be informed of any test results. Mammogram - done Colonoscop y - done - cologuard 2020 Bone Density - [ not applicable ] Cholestero l - [ declined blood work] Pap - today [id number] Giovanny Reyes MD [facility] [address] [address] 02/26/2021 09:08:53 02/26/2021 17:24:53 Screening procedure 75417930 Z13.9 Abnormal c ervical Papanicolaou smear 139146590 R87.619 this patient is a 50-year-ol d female presents for colposcopi c examinatio n. The examinatio n was very challengin g. She had a very small flat cervix in a very long vagina. It was difficult to get a speculum back there that was both narrow and often long enough to reveal the cervix well. Patient will return in 6 months for repeat Pap smear. Will consider some other form of examinatio n or treatment. [id number] Giovanny Reyes MD [facility] [address],[place] [address] 03/24/2023 10:06:14 03/24/2023 11:30:39 Dyspareunia 48350508 N94.10 Gynecologi c examination 90077146 Z01.419 Z11.51 This patient is here for her annual exam. A thorough history was taken. A physical exam was performed. Age appropriat e routine health screening was ordered, performed, and discussed. Recommende d testing was ordered. She was asked to follow up in one year. She will be informed of any test results. Mammogram - done Colonoscop y - done - cologuard 2020 Bone Density - [ not applicable ] Cholestero l - ordered Pap - today [id number] Giovanny Reyes MD [facility] [address],[place] [address] 03/11/2022 09:41:16 03/12/2022 14:29:15 Human papillomavirus deoxyribonucleic acid detected, high risk on cervical specimen 262533209 R87.810 Status post LEEP. A lot of rugated tissue present on what appeared to be the cervix. Not much cervix visible, kind of puckered. Os scarred shut and difficult to curettage [id number] Giovanny Reyes MD [facility] [address],[place] [address] 04/16/2022 09:13:37 04/19/2022 14:29:57 Dysplasia of cervix 01219368 N87.9 colposcopy was performed. It was normal but unsatisfac tory. ECC was performed. [id number] JOVI Roa [facility] [address] [address] 03/29/2024 09:26:57 03/29/2024 10:22:43 Gynecologic examination 63070869 Z01.419 WWEpap updateddec lined STI screenmamm ogram UTD/PCPCol on CA screening discussed - order placed for cologuardr outine labs UTD/PCPRTC in 1 yr or sooner if neededsmok ing cessation encouraged Do monthly self breast exams. It is advised to get annual flu shot in the fall and she could obtain at local pharmacy. If you haven't received the Tdap vaccine in the last 10 years you should obtain one as well. Have mammogram yearly and stay up to date on colon cancer screening. Engage in regular exercise. Avoid tobacco and illicit drugs. This lifestyle behavior pattern will lead to less health conditions and longer life span. If BMI greater than 25 dietary consult advised. Questions have been answered. Patient appears to understand instructio ns, but if you have any further questions call or respond to this email Health Concerns Section Related Observation LastModified by Organization Detai ls LastModified Time None Recorded Concern Status LastModified by Organization Details LastModified Time None Recorded Advance Directives Directive N: Payers Insurance Date Sequence Insurance Name Policy Number Policy Griggs Covered Member ID Griggs Member ID Guarantor Name 02/08/2022 1 [facility] PRIOR TO 04/23/2021 (MEDICAID REPLACEMENT - HMO) Nesha Reid [id number] Nesha Reid 03/26/2024 1 [facility] ON OR AFTER 04/23/21 (MEDICAID REPLACEMENT - HMO) Nesha Reid [id number] Nesha Reid Notes Date Note Type Note Provider Name and Address Organization Details Recorded Time 02/09/20 22 text/htm l Annual GYNReported by PatientHistoryFor history, patient reportsno gynecologic complaints.Genitourinary symptomsFor menstrual cycle, patient reportsnormal menses. For urinary symptoms, patient reportsno hematuriaandno incontinence. For vulva, patient reportsno genital lesion. For vagina, patient reportsnormal vaginal discharge.Breast symptomsFor breast, patient reportsno breast pain,no breast lump, andno nipple discharge.Endocrine symptomsFor sexual complaints, patient reportsno sexual complaintsandno pain during intercourse. For menopausal symptoms, patient reportsno menopausal symptomsandnormal vaginal lubrication.Psychological symptomsFor psychological symptoms, patient reportsdepressionandanxiety (txed).Preventative measuresFor preventive measures, patient reportsencourage self breast examinationandencourage regular exercise. Giovanny Reyes MD [address], [place], [address], [facility] 02/08/2022 09:56:20 03/11/20 22 text/htm l to 51-year-old female presents for colposcopy. Giovanny Reyes MD [address], [place], [address], [facility] 03/11/2022 20:35:54 04/16/20 22 text/htm l This patient is a 51-year-old female who presents for follow-up after colposcopy and cervical biopsies. She had some low-grade dysplasia on the biopsies. She has a history of severe dysplasia and LEEP procedure. Giovanny Reyes MD [address], [place], [address], [facility] 04/17/2022 12:05:03 03/24/20 23 text/htm l Annual GYNReported by PatientHistoryFor history, patient reportsno gynecologic complaints.Genitourinary symptomsFor urinary symptoms, patient reportsno hematuriaandno incontinence. For vulva, patient reportsno genital lesion. For vagina, patient reportsnormal vaginal discharge.Breast symptomsFor breast, patient reportsno breast painandno breast lump.Endocrine symptomsFor sexual complaints, patient reportsno sexual complaintsandno pain during intercourse.Psychological symptomsFor psychological symptoms, patient reportsdepressionandanxiety (bipolar, not treated).Preventative measuresFor preventive measures, patient reportsencourage self breast examinationandencourage regular exercise. Giovanny Reyes MD [address], [place], [address], [facility] 03/24/2023 11:28:31 03/29/20 24 text/htm l Annual [employer]person [employer] Post-MenopausalReported by PatientGenitourinary symptomsFor menopausal symptoms, patient reportsno menopausal symptomsandnormal vaginal lubrication. For vaginal bleeding, patient reportshistory of menopause having occurredandno history of post menopausal bleeding. For urinary symptoms, patient reportsno hematuria,no incontinence,no nocturia, andno urinary frequency. For vulva, patient reportsno genital lesionandno vulvar atrophy. For vagina, patient reportsnormal vaginal dischargeandno vaginal atrophy.Breast symptomsFor breast, patient reportsno breast lump,no nipple discharge, andno breast pain.Psychological symptomsFor sexual complaints, patient reportsno sexual complaints. For psychological symptoms, patient reportsno depressionandno anxiety.Preventative measuresFor preventive measures, patient reportsencourage regular mammograms starting age 40,encourage self breast examination,encourage regular exercise,encourage no tobacco use,mammogram performed within the past year, andneeds to schedule colonoscopy.53yo WWEh/o abnormal paps requiring procedure in the pastlast pap 03/24/2023 : nilm, HPV (-)postmenopausal since mid 40'smammogram UTD/ordered through [facility] last outine labs UTD/PCP JOVI Roa [address], [place], [address], [facility] 03/29/2024 09:58:37 OBGyn Episode Ob Episode Information Episode Created Date Number of Fetuses Patient Bloodtype Patient rh Status Prepregnancy Weight lbs Domestic Partner Domestic Partner Phone Father Name Organisation And Methods Analyst Status 05/23/20 20 1 CLOSED Fetus Data First Name Last Name Admitted to NICU Weight (g) Sex Living Outcome Pediatric Complications Fetus ID Race Codes Race Delivery Type [id number] Vaginal Delivery Blas Calculation Initial Blas Date Initial Exam Date Initial Exam Provider Initial Ultrasound Date Last Menstrual Period Date Ultra Sound Weeks Gestation 0 Eighteen To Twenty Week Blas Update Ultra Sound Date Fundal Height At Umbil Quickening Date Ultra Sound Latest Weeks Gestation Final Blas Confirmed By Final Blas Confirmed Date Final Blas Date Ultra Sound Latest Days Gestation 0 0 Menstrual History Last Menstrual Date Menses Monthly On Bcp Conception Prior Menses Frequency Hcg Plus Date Menarche Onset Age Delivery Information Delivery Date Delivery Type Labor Anesthesia Weeks Gestation Incision Type Labor Labor Length Hrs Delivered By Post Complications Tubal Sterilization Discharge Date Comments 4 Discharge Information Feeding Method Contraceptive Method Maternal HG B and HCT Levels Ob Episode Information Episode Created Date Number of Fetuses Patient Bloodtype Patient rh Status Prepregnancy Weight lbs Domestic Partner Domestic Partner Phone Father Name Organisation And Methods Analyst Status 05/23/20 20 1 CLOSED Fetus Data First Name Last Name Admitted to NICU Weight (g) Sex Living Outcome Pediatric Complications Fetus ID Race Codes Race Delivery Type 3347 Vaginal Delivery Blas Calculation Initial Blas Date Initial Exam Date Initial Exam Provider Initial Ultrasound Date Last Menstrual Period Date Ultra Sound Weeks Gestation 0 Eighteen To Twenty Week Blas Update Ultra Sound Date Fundal Height At Umbil Quickening Date Ultra Sound Latest Weeks Gestation Final Blas Confirmed By Final Blas Confirmed Date Final Blas Date Ultra Sound Latest Days Gestation 0 0 Menstrual History Last Menstrual Date Menses Monthly On Bcp Conception Prior Menses Frequency Hcg Plus Date Menarche Onset Age Delivery Information Delivery Date Delivery Type Labor Anesthesia Weeks Gestation Incision Type Labor Labor Length Hrs Delivered By Post Complications Tubal Sterilization Discharge Date Comments 0 Discharge Information Feeding Method Contraceptive Method Maternal HG B and HCT Levels Ob Episode Information Episode Created Date Number of Fetuses Patient Bloodtype Patient rh Status Prepregnancy Weight lbs Domestic Partner Domestic Partner Phone Father Name Organisation And Methods Analyst Status 05/23/20 20 1 CLOSED Fetus Data First Name Last Name Admitted to NICU Weight (g) Sex Living Outcome Pediatric Complications Fetus ID Race Codes Race Delivery Type 3345 Vaginal Delivery Blas Calculation Initial Blas Date Initial Exam Date Initial Exam Provider Initial Ultrasound Date Last Menstrual Period Date Ultra Sound Weeks Gestation 0 Eighteen To Twenty Week Blas Update Ultra Sound Date Fundal Height At Umbil Quickening Date Ultra Sound Latest Weeks Gestation Final Blas Confirmed By Final Blas Confirmed Date Final Blas Date Ultra Sound Latest Days Gestation 0 0 Menstrual History Last Menstrual Date Menses Monthly On Bcp Conception Prior Menses Frequency Hcg Plus Date Menarche Onset Age Delivery Information Delivery Date Delivery Type Labor Anesthesia Weeks Gestation Incision Type Labor Labor Length Hrs Delivered By Post Complications Tubal Sterilization Discharge Date Comments 8 Discharge Information Feeding Method Contraceptive Method Maternal HG B and HCT Levels
--- OUTSIDE RECORDS SUMMARY | 2025-10-21 10:35 | XMS_ITS | Clinical Summary ---
Author Organization [facility] Address [address] [place] [address] Phone Care Team Providers Care Guest Experience Captain Name Role Phone Olive Sanabria APRN Primary Care Provider [phone] Allergies Active Allergy Reactions Criticality Noted Date [...] Comments Blood Pressure 129/79 09/23/2017 3:32 AM COMMUNICATIONS CONTROLLER Pulse 95 09/23/2017 3:32 AM COMMUNICATIONS CONTROLLER Temperature 36.8 C (98.2 F) 09/23/2017 1:19 AM COMMUNICATIONS CONTROLLER Respiratory Rate 18 09/23/2017 1:19 AM COMMUNICATIONS CONTROLLER Oxygen Saturation 100% 09/23/2017 3:32 AM COMMUNICATIONS CONTROLLER Inhaled Oxygen Concentration - - Weight 72.6 kg (160 lb) 09/23/2017 1:15 AM COMMUNICATIONS CONTROLLER Height 154.9 cm (5' 1) 09/23/2017 1:15 AM COMMUNICATIONS CONTROLLER Body Mass Index 30.23 09/23/2017 1:15 AM COMMUNICATIONS CONTROLLER Plan of Treatment Health Maintenance Due Date [...] 2019 Zoster Immunization (1 of 2) 2019 Influenza Immunization (#1) 2025 SARS-COV-2 Immunization (1 - 2024- season) 2025 Respiratory Syncytial Virus (RSV) Immunization (Adult) (1 - 1-dose 75+ series) 2044 Human Papillomavirus (HPV) Immunization (No Doses Required) Completed Meningococcal Immunization (ACWY) Aged Out No longer eligible based on patient's age to complete this topic Rotavirus Immunization Aged Out No lo nger eligible based on patient's age to complete this topic Insurance MEDICAID [employer] Care Teams Guest Experience Captain Relationship Specialty Start Date End Date Olive Sanabria APRN [address] [place] [address] PCP - General Family Medicine 07/29/22
--- OUTSIDE RECORDS SUMMARY | 2025-10-21 10:35 | XMS_ITS | Clinical Summary ---
Author Organization [facility] [address] Address [address] [place] [address] Phone Care Team Providers Care Gas Meter Installer Name Role Phone Cindy Ricks FITNESS PROFESSIONAL Unavailable [phone] Aundrea Rosas NP Primary Care Provider [phone] Allergies Active Allergy Reactions Criticality Noted Date Comments Buspirone Hcl Other (See comments) Low 01/20/2017 Gabapentin Other (See comments),Unknown Low 01/20/2017 Pale/passed out Sulfa (Sulfonamide Antibiotics) Other (See comments),Vomiting Low 06/21/2024 Sulfasalazine Vomiting Low 09/23/2017 Medications albuterol HFA (PROVENTIL HFA,VENTOLIN HFA,PROAIR HFA) 90 mcg/actuation inhaler Active aspirin 81 mg enteric coated tablet 05/01/2024 Active budesonide-form oteroL (SYMBICORT) 80-4.5 mcg/actuation inhaler 07/14/2022 Active tiotropium (Spiriva with HandiHaler) 18 mcg per inhalation capsule Active QUEtiapine (SEROquel) 100 mg tablet 04/04/2024 Active primidone (MYSOLINE) 50 mg tabletIndicatio ns:Essential Tremor Take 1 tablet (50 mg total) by mouth 2 (two) times a day Take 1/2 tab twice daily for 1 week, then 1/2 tab in AM and 1 tablet at night for 1 week, then 1 tablet twice daily 60 tablet 3 10/03/2024 Active pregabalin (LYRICA) 150 mg capsule Take 1 capsule (150 mg total) by mouth 2 (two) times a day Active topiramate (TOPAMAX) 25 mg tablet TAKE 1 TABLET(25 MG) BY MOUTH EVERY NIGHT 90 tablet 2 08/20/2025 Active Active Problems Problem Noted Date Diagnosed Date Essential tremor 06/21/2024 Social History Tobacco Use Types Packs/Day Years [...] of 2) 2019 Influenza Vaccine (#1) 2025 Lung Cancer Screening 05/26/2026 05/25/2025 Pneumococcal vaccine <65 Aged Out No longer eligible based on patient's age to complete this topic Procedures Procedure Name Priority Date/Time Associated Diagnosis Comments CT LUNG CANCER SCREENING Schedule Routine, Read Routine (OP Routine) 05/25/2025 11:54 AM CDT Personal history of nicotine dependence from Last 3 Months or Most Recently Relevant to Health Maintenance Results * CT Lung Cancer Screening (05/25/2025 11:54 AM CDT) Anatomical Region Laterality Modality Chest N/A Computed Tomogra phy 06/04/2025 3:13 PM CDT Narrative 06/04/2025 3:17 PM CDT EXAM DESCRIPTION: CT LUNG CANCER SCREENING REASON FOR STUDY: Screening CT of the chest in a current smoker with a 43 pack year smoking history. Additional history: None. TECHNIQUE: Low dose CT scan of the chest was performed without intravenous contrast using helical scanning technique. The exam extends from the lung apices through the lung bases. Automatic exposure control was used as a dose optimization technique. NOTE: This study was performed for the specific purposes of lung cancer screening and is not an alternative to diagnostic chest CT. RADIATION DOSE: CT dose index volume (CTDIvol) = 1.52 mGy COMPARISON: None FINDINGS: SMOKING RELATED LUNG DISEASE: Mild emphysematous change is noted. There is some associated mild central bronchiectasis. LUNG NODULES: There is a 5.5 mm left upper lobe nodule (image 50). A few scattered pulmonary micronodules (<3 mm) are also noted. CORONARY ARTERY CALCIFICATION: Present OTHER: The heart is normal in size. Scattered mediastinal lymph nodes are present which are subcentimeter in shortest diameter. No pneumothorax or pleural effusion is seen. IMPRESSION: 1. Left upper lobe nodule. Lung-RADS category 2: Benign appearance or behavior. Recommendation: Low dose Screening CT of chest in 12 months. THIS IS AN ELECTRONICALLY VERIFIED FINAL REPORT 06/04/2025 3:17 PM - Electronically signed by Brayan Soto M.D. BS: TC Report ID: [id number] Reading Location: [id number] Procedure Note Brayan Soto MD - 06/04/2025 EXAM DESCRIPTION: CT LUNG CANCER SCREENING REASON FOR STUDY: Screening CT of the chest in a current smoker with a43 pack year smoking history. Additional history: None. TECHNIQUE: Low dose CT scan of the chest was performed without intravenous contrast using helical scanning technique. The exam extends from the lung apices through the lung bases. Automatic exposure control was used as adose optimization technique. NOTE: This study was performed for the specific purposes of lung cancer screening and is not an alternative to diagnostic chest CT. RADIATION DOSE: CT dose index volume (CTDIvol) = 1.52 mGy COMPARISON: None FINDINGS: SMOKING RELATED LUNG DISEASE: Mild emphysematous change is noted.There is some associated mild central bronchiectasis. LUNG NODULES: There is a 5.5 mm left upper lobe nodule (image 50). Afew scattered pulmonary micronodules (<3 mm) are also noted. CORONARY ARTERY CALCIFICATION: Present OTHER: The heart is normal in size. Scattered mediastinal lymph nodesare present which are subcentimeter in shortest diameter. No pneumothorax or pleural effusion is seen. IMPRESSION: 1. Left upper lobe nodule. Lung-RADS category 2: Benign appearance or behavior. Recommendation: Low dose Screening CT of chest in 12 months. THIS IS AN ELECTRONICALLY VERIFIED FINAL REPORT 06/04/2025 3:17 PM - Electronically signed by Brayan Soto M.D. BS: BS Report ID: [id number] Reading Location: [id number] us Provider Transcribed Order IMG CT PROCEDURES Fin al Result from Last 3 Months or Most Recently Relevant to Health Maintenance Insurance [facility] Care Teams Gas Meter Installer Relationship Specialty Start Date End Date Aundrea Rosas NP [address] [place] [address] PCP - General Family Medicine 05/22/25 Cindy Ricks NP [address] [place] [id number] Nurse Practitioner Nurse Practitioner 10/25/23
[2025-10-21 10:42] LABS: Hematocrit 44.2 % (35.0-49.0); Hemoglobin 14.4 g/dL (12.0-15.0); Immature Granulocyte Percent A 0.2 % (0.0-0.0); Lymphocytes Absolute Auto 3.12 K/mm3 (1.10-4.50); Mean Corpuscular HGB Conc 32.6 g/dL (32-36); Mean Corpuscular Hemoglobin 31.1 pg (27.0-31.0); Mean Corpuscular Volume 95.5 fL (78.0-102.0); Nucleated Red Blood Cells Absolute Auto 0.00 K/mm3 (0.00-0.00); Nucleated Red Blood Cells Perc 0.0 % (0-0.0); Platelet Count Result 328 K/mm3 (150-420); Red Blood Count 4.63 M/mm3 (4.20-5.40); White Blood Count 9.0 K/mm3 (4.8-10.8)
[2025-10-21 10:58] LABS: Alanine Aminotransferase 19 U/L (6-35); Albumin Level 4.6 g/dL (3.5-5.1); Alkaline Phosphatase 76 U/L (38-126); Anion Gap 11 mmol/L (4-12); Aspartate Amino Transferase 19 U/L (14-36); Bilirubin,Total 0.3 mg/dL (0.2-1.3); Blood Urea Nitrogen 17 mg/dL (7-17); Calcium 9.5 mg/dL (8.4-10.2); Carbon Dioxide 26 mmol/L (22-30); Chloride 112 mmol/L (98-107); Cholesterol 244 mg/dL (0-200); Estimated Glomerular Filt Rate 59; Glucose 99 mg/dL (65-110); HDL Direct 72 mg/dL; Osmolality Calculated 309 mOsm/kg (285-295); Potassium 4.5 mmol/L (3.4-5.0); Sodium 149 mmol/L (137-145); Total Protein 6.9 g/dL (6.3-8.2); Triglycerides 190 mg/dL (<150)
[2025-10-21 11:06] LABS: Hemoglobin A1C 5.4 % (<5.7); MALB Creatinine Ratio 5.9 mg/g (0-30)
[2025-10-21 11:29] LABS: Thyroid Stimulating Hormone Reflex 4.360 uIU/mL (0.465-4.68)
[2025-10-21 11:56] LABS: Free T4 Free Thyroxine Reflex 0.88 ng/dL (0.78-2.19)
== END 2025-10-21 10:09 | disposition home or self-care (01) ==
PROVIDERS: PCP Nurse Practitioner Family; Visit Provider Internal Medicine Cardiovascular Disease
DX: Z00.00 Encounter for general adult medical examination without abnormal findings (principal); E78.5 Hyperlipidemia, unspecified; R14.2 Eructation
CPT/HCPCS: 36415; 80053; 80061; 82043; 83013; 83036; 84439; 84443; 85025